=== PATIENT | female | born 1965 | race Caucasian/White ===

== ENCOUNTER 2024-06-13 10:26 | Outpatient (AMB) | payer OTHER, SELFPAY ==
[2024-06-13 10:36] VITALS: BP 106/68; PULSE 83; O2SAT 97; BMI 31.3
--- NOTE | 2024-06-13 10:36 | A.OFFPC_ITS ---
Vital Signs 06/13/24 10:36 Height 5 ft 5 in Weight 188 lb BMI 31.3 BP 106/68 Blood Pressure Location Rt brachial Position Sitting Pulse 83 Pulse Source Pulse Oximeter Pulse Oximetry (%) 97 Oxygen Delivery Method Room Air Intake Visit Reasons: New pt visit ok per Dr. Woodard Intake Note: Pt is here today for New patient visit. Allergies dexamethasone [From Decadron] Allergy (Unknown, Unverified 06/13/24 10:39) LIGHTHEADED From Decadron Allergy (Unknown, Uncoded 06/13/24 10:39) LIGHTHEADED Medication List - Last Reconciled 06/13/24 by Mary Woodard MD acetaminophen ER (Tylenol 8 Hour) 1,000 mg PO Q12H PRN amlodipine 5 mg PO DAILY aspirin 81 mg PO DAILY carvedilol 3.125 mg PO BID glipizide 5 mg PO DAILY lidocaine 5% 1 patch topical DAILY metformin ER 750 mg PO BID rosuvastatin 20 mg PO DAILY Tobacco use date assessed: 06/13/24 Dental Screening Dental Screen Date: 06/13/24 Did you have a dental visit in the last 12 months?: Yes Did you have a dental problem in the last 6 months where you did not have access to dental care?: No Was dental information given to patient?: Patient has dentist HPI New pt visit ok per Dr. 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 Pt was hospitalized at [facility] in April for acute stroke presenting as left-sided hemiparesis. 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 The weakness improved significantly. patient has been in physical therapy. She was diagnosed with diabetes A1c of 11% and hypertension. Patient started taking glipizide and metformin and reports improving blood glucose readings overall, monitoring with Dexcom sensor but has frequent hypoglycemic episodes with a glucose dropping to 60s at night. 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 Housing: House Patient Tobacco Use Status: Former Tobacco user e-Cigarette/Vaping Use: Never Used service: No Current occupational status: employed Cognitive needs: No Hearing needs: No Vision needs: Yes Questionnaire AUDIT C Alcohol Use Questionnaire (AUDIT-C) 1. How often do you have a drink containing alcohol?: Monthly or less 2. How many drinks containing alcohol do you have on a typical day when you are drinking?: 1 or 2 3. How often do you have six or more drinks on one occasion?: Never Total Score: 1 Review of Systems Const All systems reviewed & are unremarkable except as noted in HPI and below ENT Reports no additional complaints Card Reports no additional complaints Resp Reports no additional complaints GI Reports no additional complaints Reports no additional complaints Physical exam (Primary Care) Vital Signs: Last Vital Signs Pulse 83 06/13/24 10:36 BP 106/68 06/13/24 10:36 Pulse Ox 97 06/13/24 10:36 Oxygen Delivery Method Room Air 06/13/24 10:36 BMI result Body Mass Index 31.3 Tobacco/Smoking Status: Tobacco use Status Tobacco use date assessed 06/13/24 06/13/24 10:52 Patient Tobacco Use Status Former Tobacco user 06/13/24 11:03 e-Cigarette/Vaping Use Never Used 06/13/24 11:03 Const General: no acute distress HENMT Head: Yes normal to inspection Face and sinus: Yes normal facial exam Throat: Yes posterior oropharynx normal Resp Effort & Inspection: normal respiratory effort Auscultation: clear to auscultation bilaterally Cardio Rhythm: regular rhythm Heart sounds: S1 normal heart sound present and S2 normal heart sound present GI Inspection: Yes normal to inspection Palpation (GI): Soft to palpation Percussion: Yes normal to percussion Auscultation: normal bowel sounds Neuro Other: Right lower extremity 4 to 5/5 strength otherwise all 3 extremities 5/5 strength Gait exam (Neuro): Normal gait present Coordination: [id number] test normal Results AMB Hemoglobin A1c AMB Hemoglobin A1c 7.9 % Last Edit by JESS Lea on 06/13/24 11:2 3 Coding Level of Care Code New Pt Level 5 (93459) Diagnoses CVA (cerebral vascular accident) I63.9 DJD (degenerative joint disease), lumbar M47.816 Hyperlipidemia E78.5 HTN (hypertension) I10 DM type 2 (diabetes mellitus, type 2) E11.9 Thyroid nodule E04.1 Adrenal adenoma D35.00 History of mammography, screening Z92.89 Annual physical exam Z00.00 Assessment & Plan Assessment & Plan (1) CVA (cerebral vascular accident): Comment: LEFT mid brain CVA with mild right sided weakness, hospitalized at [facility] 04/27/2024 Code(s): I63.9 - Cerebral infarction, unspecified Category: Medical Plan: Continue aspirin and high dose of statin, obtain secondary CA workup including echo Holter and sleep studies (2) DJD (degenerative joint disease), lumbar: Comment: f/u with neurosurgeon Dr. Bob Code(s): M47.816 - Spondylosis without myelopathy or radiculopathy, lumbar region Category: Medical Plan: Patient is established with pain management (3) Hyperlipidemia: Code(s): E78.5 - Hyperlipidemia, unspecified Category: Medical Plan: Continue crestor (4) HTN (hypertension): Code(s): I10 - Essential (primary) hypertension Category: Medical Plan: Amlodipine will be changed to lisinopril 20 mg a day for hypertension and renal protection with the diabetes (5) DM type 2 (diabetes mellitus, type 2): Code(s): E11.9 - Type 2 diabetes mellitus without complications Category: Medical Plan: A1c 7.6 today. ADA diet increase physical activity discussed with the patient. Patient was advised to continue monitoring her blood glucose with Dexcom to detect hypoglycemia. She was advised to stop glipizide continue metformin and Mounjaro 2.5 mg weekly will be started. Patient will follow-up in 1 month with a fasting labs before (6) Thyroid nodule: Comment: Patient will schedule an appointment with acoustical tile patternmaker at [facility] 06/2024 Code(s): E04.1 - Nontoxic single thyroid nodule Category: Medical Plan: She will follow-up with acoustical tile patternmaker at [facility] (7) Adrenal adenoma: Comment: on MRI stable Code(s): D35.00 - Benign neoplasm of unspecified adrenal gland Category: Medical Plan: Obtain old record (8) History of mammography, screening: Code(s): Z92.89 - Personal history of other medical treatment Category: Medical Plan: Obtain old records (9) Annual physical exam: Code(s): Z00.00 - Encounter for general adult medical examination without abnormal findings Category: Medical Plan: Patient will be referred to GI for colonoscopy and will call to schedule a Pap smear with her adult health clinical nurse specialist she is overdue for 5 year Orders: Orders CA echo transthoracic complete Today I63.9 - Cerebral infarction, unspecified Comprehensive [place]. Panel Fast 1 Month E11.9 - Type 2 diabetes mellitus without complications, E78.5 - Hyperlipidemia, unspecified, I10 - Essential (primary) hypertension, I63.9 - Cerebral infarction, unspecified Lipid Panel 1 Month E78.5 - Hyperlipidemia, unspecified, I10 - Essential (primary) hypertension, I63.9 - Cerebral infarction, unspecified RT home sleep study Today I63.9 - Cerebral infarction, unspecified ECG 7 day holter monitor Today I63.9 - Cerebral infarction, unspecified AMB Hemoglobin A1c Today Z13.9 - Encounter for screening, unspecified Complete Blood Count Auto Diff 1 Month E78.5 - Hyperlipidemia, unspecified, I10 - Essential (primary) hypertension, I63.9 - Cerebral infarction, unspecified Microalbumin, Random (w Creat) 1 Month E78.5 - Hyperlipidemia, unspecified, I10 - Essential (primary) hypertension, I63.9 - Cerebral infarction, unspecified Referrals Gastroenterology Referral I63.9 - Cerebral infarction, unspecified, Z00.00 - Encounter for general adult medical examination without abnormal findings Medications: New blood-glucose sensor ([employer] G7 Sensor device) As directed 2 ea 3RF lisinopril 20 mg PO DAILY 90 tabs 0RF tirzepatide (Mounjaro) for 4 weeks 2.5 mg (0.5 mL) subcut QWEEK 2 mL 3RF
== END 2024-06-13 11:39 | disposition home or self-care (01) ==
PROVIDERS: PCP Internal Medicine; Visit Provider Internal Medicine
DX: I69.351 Hemiplegia and hemiparesis following cerebral infarction affecting right dominant side (principal); E11.69 Type 2 diabetes mellitus with other specified complication; M47.816 Spondylosis without myelopathy or radiculopathy, lumbar region; E78.5 Hyperlipidemia, unspecified; I10 Essential (primary) hypertension; E04.1 Nontoxic single thyroid nodule; D35.00 Benign neoplasm of unspecified adrenal gland; Z92.89 Personal history of other medical treatment

== ENCOUNTER → 2024-06-13 10:26 | Outpatient (BNVA) | payer BC, SELFPAY | PROVIDERS: PCP Internal Medicine; Visit Provider Internal Medicine | DX: I69.351 Hemiplegia and hemiparesis following cerebral infarction affecting right dominant side (principal); M47.816 Spondylosis without myelopathy or radiculopathy, lumbar region; E78.5 Hyperlipidemia, unspecified; I10 Essential (primary) hypertension; E11.9 Type 2 diabetes mellitus without complications; E04.1 Nontoxic single thyroid nodule; D35.00 Benign neoplasm of unspecified adrenal gland; Z79.82 Long term (current) use of aspirin; Z79.84 Long term (current) use of oral hypoglycemic drugs; Z79.899 Other long term (current) drug therapy | CPT/HCPCS: 83036 ==

== ENCOUNTER 2024-07-09 09:10 | Outpatient (REF) | payer OTHER, SELFPAY ==
[2024-07-09 11:16] LABS: MANUAL DIFF FLAG NO
[2024-07-09 11:20] LABS: Basophils Percent Auto 0.4 % (0-2); Eosinophils Absolute Auto 0.1 X10*3/uL (0.0-0.4); Eosinophils Percent Auto 1.2 % (0-4); Hematocrit 37.4 % (37.0-47.0); Imm Gran Abs Auto 0.04 X10*3/uL (0.00-0.03); Imm Gran Pct Auto 0.4 % (0.0-0.4); Lymphocytes Absolute Auto 2.2 X10*3/uL (1.2-4.9); Lymphocytes Percent Auto 24.9 % (20-40); Mean Corpuscular HGB Conc 32.1 g/dl (31.0-35.0); Mean Corpuscular Hemoglobin 27.5 pg (27.0-33.0); Mean Corpuscular Volume 85.8 fL (80.0-98.0); Mean Platelet Volume 11.4 fL (9.4-12.3); Monocytes Absolute Auto 0.5 X10*3/uL (0.1-1.2); Monocytes Percent Auto 5.1 % (2-11); Neutrophils Absolute Auto 6.1 x10*3/uL (2.0-8.3); Platelet Count 301 X10*3/uL (160-400); Red Blood Count 4.36 X10*6/uL (4.20-5.50); Red Cell Distribution Width 12.9 % (11.0-16.0)
[2024-07-09 11:35] LABS: Alanine Aminotransferase 14 U/L (0-31); Albumin Level 4.1 g/dL (3.5-5.0); Alkaline Phosphatase 81 U/L (39-117); Anion Gap 13 (12-20); Aspartate Amino Transferase 17 U/L (5-31); Bilirubin Total 0.4 mg/dL (0.0-1.0); Blood Urea Nitrogen 15 mg/dL (9-16); Calcium 9.1 mg/dL (8.4-10.2); Carbon Dioxide 26 mmol/L (22-29); Chloride 106 mmol/L (96-108); Cholesterol 134 mg/dL (<200); Estimated Glomerular Filt Rate > 60; Glucose Fasting 180 mg/dL (60-99); HDL Cholesterol 45 mg/dL (>40); LDL Cholesterol Calculated 68 mg/dL (<100); Potassium 3.9 mmol/L (3.3-5.1); Sodium 141 mmol/L (135-145); Total Protein 6.5 g/dL (6.5-8.0); Triglycerides 108 mg/dL (<150)
[2024-07-09 12:08] LABS: Creatinine Urine 185.02 mg/dL
== END 2024-07-09 09:11 | disposition home or self-care (01) ==
LOC: HO.HMGCLDS 09:10
PROVIDERS: PCP Internal Medicine; Visit Provider Internal Medicine
DX: E78.5 Hyperlipidemia, unspecified (principal); I10 Essential (primary) hypertension; I63.9 Cerebral infarction, unspecified; E11.9 Type 2 diabetes mellitus without complications
CPT/HCPCS: 36415; 80053; 80061; 82043; 82570; 85025

== ENCOUNTER 2024-07-11 09:56 | Outpatient (AMB) | payer OTHER, SELFPAY ==
[2024-07-11 10:06] VITALS: BP 126/78; PULSE 82; O2SAT 100; BMI 31.3
--- NOTE | 2024-07-11 10:06 | A.OFFPC_ITS ---
Vital Signs 07/11/24 10:06 Height 5 ft 5 in Weight 188 lb BMI 31.3 BP 126/78 Blood Pressure Location Lt brachial Position Sitting Pulse 82 Pulse Source Pulse Oximeter Pulse Oximetry (%) 100 Oxygen Delivery Method Room Air Intake Visit Reasons: 1m follow up Intake Note: Pt is here today for 1 month follow up visit. Allergies dexamethasone [From Decadron] Allergy (Unknown, Unverified 07/11/24 10:08) LIGHTHEADED From Decadron Allergy (Unknown, Uncoded 07/11/24 10:08) LIGHTHEADED Medication List - Last Reconciled 07/11/24 by Mary Woodard MD acetaminophen ER (Tylenol 8 Hour) 1,000 mg PO Q12H PRN aspirin 81 mg PO DAILY blood sugar diagnostic (FreeStyle Lite Strips) Test blood sugar once a day blood-glucose meter (FreeStyle Lite Meter kit) As directed blood-glucose sensor ([employer] G7 Sensor device) As directed carvedilol 3.125 mg PO BID lancets (FreeStyle Lancets) Test blood sugar once a day lidocaine 5% 1 patch topical DAILY lisinopril 20 mg PO DAILY metformin ER 750 mg PO BID rosuvastatin 20 mg PO DAILY tirzepatide (Mounjaro) 2.5 mg (0.5 mL) subcut QWEEK Tobacco use date assessed: 07/11/24 Dental Screening Dental Screen Date: 06/13/24 HPI 1m follow up HPI Details Patient presents for the follow-up on type 2 diabetes hypertension. Patient reports improved blood glucose readings and no episodes of hypoglycemia since she stopped glipizide. Patient increased lisinopril to 40 mg a day last week because of elevated blood pressure at home. 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 1. Little interest or pleasure in doing things: not at all 2. Feeling down, depressed, or hopeless: not at all 3. Trouble falling or staying asleep, or sleeping too much: not at all 4. Feeling tired or having little energy: not at all 5. Poor appetite or overeating: not at all 6. Feeling bad about yourself - or that you are a failure or have let yourself or your family down: not at all 7. Trouble concentrating on things, such as reading the newspaper or watching television: not at all 8. Moving or speaking so slowly that other people could have noticed. Or the opposite - being so fidgety or restless that you have been moving around a lot more than usual: not at all 9. Thoughts that you would be better off or of hurting yourself in some way: not at all Total score: 0 Depression Screening Interpretation: Negative Depression Screening Done: Yes [id number] - PHQ-9 Billing: Yes Source: Developed by Drs. Osvaldo Russo, Meghan Hurt, Scooby Lopez and colleagues, with an educational ivelisse from [employer]. Thrive Questionnaire Date Thrive assessed: 07/11/24 I am a: Patient What is your living situation today?: I have a steady place to live Within the past 12 months, did the food you bought not last and you didn't have the money to get more?: Never true Within the past 12 months, did you worry whether your food would run out before you got money to buy more?: Never true Do you have trouble paying for medicines?: No Do you have trouble getting transportation to medical appointments?: No Do you have trouble paying your heating and electricity bill?: No Do you have trouble taking care of your child, family member or friend?: No Do you have trouble with day-to-day activities such as bathing, preparing meals, shopping, managing finances, etc.?: No Are you currently unemployed and looking for a job?: No Are you interested in more education?: No Please select the resources that you would like help with: None Currently or been in a relationship where the following occur: No concerns reported THRIVE Score: 0 AUDIT C Alcohol Use Questionnaire (AUDIT-C) 1. How often do you have a drink containing alcohol?: Monthly or less 2. How many drinks containing alcohol do you have on a typical day when you are drinking?: 1 or 2 3. How often do you have six or more drinks on one occasion?: Never Total Score: 1 ROBERTA-7 AMB Questionnaire ROBERTA-7 Date ROBERTA - 7 assessed: 07/11/24 Feeling nervous, anxious, or on edge: 0 = Not at all Not being able to stop or control worryin = Not at all Worrying too much about different things: 0 = Not at all Trouble relaxin = Not at all Being so restless that it is hard to sit still: 0 = Not at all Becoming easily annoyed or irritable: 0 = Not at all Feeling afraid as if something awful might happen: 0 = Not at all Total ROBERTA-7 score (0-4 normal; 5-9 mild; 10-14 moderate; 15-21 severe): 0 Source: Developed by Drs. Osvaldo Russo, Meghan Hurt, Scooby Lopez and colleagues, with an educational ivelisse from [employer]. ROBERTA-7 Assessment Billing ROBERTA-7 Assessment Tool: ROBERTA-7 Assessment 48701 Review of Systems Const All systems reviewed & are unremarkable except as noted in HPI and below Eyes Reports no additional complaints ENT Reports no additional complaints Card Reports no additional complaints Resp Reports no additional complaints GI Reports no additional complaints Reports no additional complaints Physical exam (Primary Care) Vital Signs: Last Vital Signs Pulse 82 07/11/24 10:06 BP 126/78 07/11/24 10:06 Pulse Ox 100 07/11/24 10:06 Oxygen Delivery Method Room Air 07/11/24 10:06 BMI result Body Mass Index 31.3 Tobacco/Smoking Status: Tobacco use Status Tobacco use date assessed 07/11/24 07/11/24 10:11 Patient Tobacco Use Status Former Tobacco user 07/11/24 10:11 e-Cigarette/Vaping Use Never Used 07/11/24 10:11 PHQ-9: PHQ-9 Score PHQ-9: Total score 0 07/11/24 11:19 Depression Screening Interpretation: Negative Thrive Assessment: Date of Thrive Assessment Date Thrive assessed 07/11/24 07/11/24 10:11 Currently or been in a relationship where the following occur: No concerns reported Const General: no acute distress HENMT Head: Yes normal to inspection Eyes General: appearance normal, both eyes and all related structures Neck Neck: Yes supple Resp Effort & Inspection: normal respiratory effort Auscultation: clear to auscultation bilaterally Cardio Rhythm: regular rhythm Heart sounds: S1 normal heart sound present and S2 normal heart sound present GI Inspection: Yes normal to inspection Palpation (GI): Soft to palpation Percussion: Yes normal to percussion Auscultation: normal bowel sounds Coding Level of Care Code Est Pt Level 4 (14033) Diagnoses HTN (hypertension) I10 Hyperlipidemia E78.5 DM type 2 (diabetes mellitus, type 2) E11.9 Additional Codes ROBERTA-7 Assessment Billing - ROBERTA-7 Assessment Tool: ROEBRTA-7 Assessment 57411 ([id number]) PHQ-9 - 96224 - PHQ-9 Billing: Yes ([id number]) Assessment & Plan Assessment & Plan (1) HTN (hypertension): Code(s): I10 - Essential (primary) hypertension Category: Medical Plan: Increase carvedilol to 6.25 twice a day continue 40 mg of lisinopril (2) Hyperlipidemia: Code(s): E78.5 - Hyperlipidemia, unspecified Category: Medical Plan: Continue statin (3) DM type 2 (diabetes mellitus, type 2): Code(s): E11.9 - Type 2 diabetes mellitus without complications Category: Medical Plan: Increase Mounjaro to 5 mg weekly and continue metformin and ADA diet , follow-up in 2 months with a fasting labs before Orders: Orders Hemoglobin A1c 2 Months E11.9 - Type 2 diabetes mellitus without complications, E78.5 - Hyperlipidemia, unspecified, I10 - Essential (primary) hypertension Comprehensive [place]. Panel Fast 2 Months E11.9 - Type 2 diabetes mellitus without complications, E78.5 - Hyperlipidemia, unspecified, I10 - Essential (primary) hypertension Complete Blood Count Auto Diff 2 Months E11.9 - Type 2 diabetes mellitus without complications, E78.5 - Hyperlipidemia, unspecified, I10 - Essential (primary) hypertension Lipid Panel 2 Months E11.9 - Type 2 diabetes mellitus without complications, E78.5 - Hyperlipidemia, unspecified, I10 - Essential (primary) hypertension Medications: New lisinopril 40 mg PO DAILY 90 tabs 1RF carvedilol must administer with a meal/food 6.25 mg PO BID 180 tabs 0RF tirzepatide (Mounjaro) 5 mg (0.5 mL) subcut QWEEK 2 mL 1RF Discontinued lisinopril Discontinued Reason: Doctor's Order 20 mg PO DAILY 90 tabs 0RF tirzepatide (Mounjaro) for 4 weeks Discontinued Reason: Doctor's Order 2.5 mg (0.5 mL) subcut QWEEK 2 mL 3RF carvedilol must administer with a meal/food Discontinued Reason: Doctor's Order 3.125 mg PO BID 180 tabs 0RF
--- OUTSIDE RECORDS SUMMARY | 2024-07-17 01:25 | XMS_ITS | Continuity of Care Document ---
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 Role Phone Mary Woodard MD Primary Care Physician [phone] Encounter [facility] Date(s): 06/03/24 - 07/03/24 [facility] [address], [address] [place] [id number] Attending Physician: Guillermina Bernstein Admitting Physician: Guillermina Bernstein Referring Physician: Guillermina Bernstein Encounter Type: Triage Allergies, Adverse Reactions, Alerts Substance Criticality Severity Reaction Reaction Severity Status Decadron lightheadedness Acti ve Medications amLODIPine 5 mg oral tablet 5 mg, 1, tablet, By Mouth, Daily, # 30 tablet, Refills 0, Tot. Refills 0, Maintenance, 04/28/24 1:21:00 PM EDT, Route to Pharmacy Electronically, [facility]/pharmacy #[id number], Partial fill upon patient request if the prescription is for a schedule II opioid drug., 167, cm, 04/28/24 11:10:00 EDT, Height, 82, kg, 04/27/24 18:26:00 EDT, Dry Weight Start Date: 04/28/24 Status: Ordered Quantity: 30.0 Unit: tablet Repeat number: 1 aspirin 81 mg oral delayed release tablet = 81 mg, By Mouth, Daily, # 30 tablet, 0 Refills, Maintenance, 04/28/24 1:15:00 PM EDT, EC Tablet, [facility]/pharmacy #[id number], Partial fill upon patient request if the prescription is for a schedule II opioiddrug., 167, cm, 04/28/24 11:10:00 EDT, Height, 82, kg, 04/27/24 18:26:00 EDT, Dry Weight Start Date: 04/28/24 Status: Ordered Quantity: 30.0 Unit: tablet Repeat number: 1 carvedilol 3.125 mg oral tablet 3.125 mg, 1, tablet, By Mouth, 2 times a day, # 60 tablet, Refills 0, Tot. Refills 0, Maintenance, 04/28/24 1:20:00 PM EDT, Route to Pharmacy Electronically, [facility]/pharmacy #[id number], Partial fill upon patient request if the prescription is for a schedule II opioid drug., 167, cm, 04/28/24 11:10:00 EDT, Height, 82, kg, 04/27/24 18:26:00 EDT, Dry Weight Start Date: 04/28/24 Status: Ordered Quantity: 60.0 Unit: tablet Repeat number: 1 clopidogrel 75 mg oral tablet 75 mg, 1, tablet, By Mouth, Daily, # 21 tablet, Refills 0, Tot. Refills 0, Maintenance, 04/28/24 1:15:00 PM EDT, Route to Pharmacy Electronically, [facility]/pharmacy #[id number], Partial fill upon patient requestif the prescription is for a schedule II opioid drug., 167, cm, 04/28/24 11:10:00 EDT, Height, 82, kg, 04/27/24 18:26:00 EDT, Dry Weight Start Date: 04/28/24 Stop Date: 05/19/24 Status: Ordered Quantity: 21.0 Unit: tablet Repeat number: 1 Contour Next EZ Glucometer See Instructions, # 1 each, Maintenance, use as directed for Type 2 Diabetes Mellitus; check sugars3 times before meals and at bedtime, everyday., 04/28/24 1:15:00 PM EDT, Supply, 167, cm, 04/28/24 11:10:00 EDT, Height, 82, kg, 04/27/24 18:26:00 EDT, Dry Weight Start Date: 04/28/24 Status: Ordered Quantity: 1.0 Unit: each Repeat number: 1 Crestor 20 mg oral tablet 1 tablet = 20 mg, By Mouth, Daily, # 30 tablet, 0 Refills, Maintenance, 04/28/24 1:16:00 PM EDT, Tablet, [facility]/pharmacy #[id number], Partial fill upon patient request if the prescription is for a schedule II opioid drug., 167, cm, 04/28/24 11:10:00 EDT, Height, 82, kg, 04/27/24 18:26:00 EDT, Dry Weight Start Date: 04/28/24 Status: Ordered Quantity: 30.0 Unit: tablet Repeat number: 1 Freestyle Lancets See Instructions, # 200 each, Refills 5, Tot. Refills 5, Maintenance, use as directed for Type 2 Diabetes Mellitus; check sugars 3 times before meals and at bedtime, everyday., 04/28/24 1:16:00 PM EDT, Supply, 167, cm, 04/28/24 11:10:00 EDT, Height, 82, kg, 04/27/24 18:26:00 EDT, Dry Weight Start Date: 04/28/24 Stop Date: 10/25/24 Status: Ordered Quantity: 200.0 Unit: each Repeat number: 6 Freestyle Test Strips See Instructions, # 100 each, Maintenance, check sugars 3 times before meals and at bedtime, everyday., 04/28/24 1:16:00 PM EDT, Supply, 167, cm, 04/28/24 11:10:00 EDT, Height, 82, kg, 04/27/24 18:26:00 EDT, Dry Weight Start Date: 04/28/24 Status: Ordered Quantity: 100.0 Unit: each Repeat number: 1 glipiZIDE 5 mg oral tablet, extended release 0 Refills, Maintenance, 06/03/24 8:38:00 AM EDT, Partial fill upon patient request if the prescription is for a schedule II opioid drug. Start Date: 06/03/24 Status: Ordered Repeat number: 1 insulin lispro 100 units/mL injectable solution 2-10 units, Subcutaneous Injection, 3 times a day before meals and bedtime, PRN Blood Glucose, << Sliding Scale Comments >> 170 - 219 2 units Call if less than 70 220 - 269 4 units 270 - 319 6 units 320 - 369 8 units 370 - 419 10 units Call if greater than 400 << Sliding Scale Comments >>, # 100 mL, 0 Refills, Maintenance, 04/30/24 10:57:00 AM EDT, Injection, Partial fill upon patient request if the prescription is for a schedule II opioid drug. Start Date: 04/30/24 Status: Ordered Quantity: 100.0 Unit: mL Repeat number: 1 metFORMIN 500 mg oral tablet 0 Refills, Maintenance, 06/03/24 8:38:00 AM EDT, Partial fill upon patient request if the prescription is for a schedule II opioid drug. Start Date: 06/03/24 Status: Ordered Repeat number: 1 Multivitamin 1 tab, By Mouth, Daily, to hold, 0 Refills, Maintenance, 01/11/16 9:48:15 AM EDT Start Date: 01/11/16 Status: Ordered Repeat number: 1 Pen [place], 30 G x 8 mm BD Ultra Fine II See Instructions, # 100 each, Refills 5, Tot. Refills 5, Maintenance, use as directed for Type 2 Diabetes Mellitus; check sugars 3 times before meals and at bedtime, everyday., 04/28/24 1:16:00 PM EDT, Supply, 167, cm, 04/28/24 11:10:00 EDT, Height, 82, kg, 04/27/24 18:26:00 EDT, Dry Weight Start Date: 04/28/24 Stop Date: 10/25/24 Status: Ordered Quantity: 100.0 Unit: each Repeat number: 6 Pt.'s Own Meds inhaler, Inhalation, Daily, PRN, Maintenance, seldom uses-allergy related, 01/11/16 9:48:54 AM EDT Start Date: 01/11/16 Status: Ordered Repeat number: 1 Tresiba FlexTouch 200 units/mL subcutaneous solution = 10 units, Subcutaneous Injection, Daily, rotate injection sites check sugars 3 times before mealsand at bedtime, everyday. Inject tresiba once daily in the morning., # 9 mL, 0 Refills, Maintenance, 04/28/24 1:16:00 PM EDT, Solution, [facility]/pharmacy #[id number], Partial fill upon patient request if the prescription is for a schedule II opioid drug., 167, cm, 04/28/24 11:10:00 EDT, Height, 82, kg, 04/27/24 18:26:00 EDT, Dry Weight Start Date: 04/28/24 Status: Ordered Quantity: 9.0 Unit: mL Repeat number: 1 Problem List Condition Confirmation Course Effective Dates Status Health St atus Informant Obese class I Confirmed Active Social History Social History Type Response Smoking Status Former smoker, quit more than 30 days ago entered on: 06/03/24 Sex Sex Representation Female (finding) Patient Care team information Care Team Personnel Name: Mary Woodard MD Position: [facility] Physician - Primary Care Member Role: PCP Address: [address] [place], [place] [address] Telecom: Name: Lashawn Rossi RN Position: [facility] RN Member Role: Primary Care Nurse Name: Viktoria Reynoso RN Position: S RN Member Role: Primary Care Nurse Name: Keila Winston RN Position: [facility] RN Member Role: Primary Care Nurse Name: Darcie Bejarano RN Position: [facility] RN Member Role: Primary Care Nurse Care Team Related Persons Name: FRED FOOTE Name: DEBBIE WADSWORTH Insurance Providers Guarantor name: ELICIA FOOTE Health Plan Information #: 1 Payer: HNE FF NON BHP HMO Member Number: NA Policy Number: NA Group Number: NA Health Plan Information #: 2 Payer: HMO BLUE IN NETWORK Member Number: NA Policy Number: NA Group Number: NA Health Plan Information #: 3 Payer: HNE SELECT PPO Member Number: NA Policy Number: NA Group Number: NA
--- OUTSIDE RECORDS SUMMARY | 2024-07-17 01:25 | XMS_ITS | Continuity of Care Document ---
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 Refills 0, Maintenance, 04/28/24 1:21:00 PM EDT, Route to Pharmacy Electronically, [facility]/pharmacy #[id number], Partial fill upon patient request if [...] Maintenance, 04/28/24 1:15:00 PM EDT, EC Tablet, [id number], Partial fill upon patient request [...] 1:20:00 PM EDT, Route to Pharmacy Electronically, [facility]/pharmacy #[id number], Partial fill upon patient request if [...] 1:15:00 PM EDT, Route to Pharmacy Electronically, [facility]/pharmacy #[id number], Partial fill upon patient requestif the [...] Refills, Maintenance, 04/28/24 1:16:00 PM EDT, Tablet, [facility]/pharmacy #[id number], Partial fill upon patient request if [...] 01/11/16 Status: Ordered Repeat number: 1 Pen [place], 30 G x 8 mm BD Ultra [...] Team Personnel Name: Mary Woodard MD Position: [facility] Physician - Primary Care Member Role: PCP Address: [address] [place], [place] [email or web address] Telecom: Name: Lashawn Rossi RN Position: [facility] RN Member Role: Primary Care Nurse Name: Viktoria Reynoso RN Position: [facility] RN Member Role: Primary Care Nurse Name: Keila Winston RN Position: [facility] RN Member Role: Primary Care Nurse Name: Darcie Bejarano RN Position: [facility] RN Member Role: Primary Care Nurse Care Team Related Persons Name: FRED FOOTE Name: DEBBIE WADSWORTH Insurance Providers Guarantor name: ELICIA FOOTE Health Plan Information #: 3 Payer: HNE SELECT PPO Member Number: [id number] Policy Number: NA Group Number: NA Health Plan Information #: 1 Payer: HNE FF NON BHP HMO Member Number: [id number] Policy Number: NA Group Number: [id number] Health Plan Information #: 2 Payer: HMO BLUE IN NETWORK Member Number: [id number] Policy Number: NA Group Number: [id number]
== END 2024-07-11 10:39 | disposition home or self-care (01) ==
PROVIDERS: PCP Internal Medicine; Visit Provider Internal Medicine
DX: I10 Essential (primary) hypertension (principal); E78.5 Hyperlipidemia, unspecified; E11.9 Type 2 diabetes mellitus without complications

== ENCOUNTER → 2024-07-11 09:56 | Outpatient (BNVA) | payer OTHER, SELFPAY | PROVIDERS: PCP Internal Medicine; Visit Provider Internal Medicine | DX: I10 Essential (primary) hypertension (principal); E78.5 Hyperlipidemia, unspecified; E11.9 Type 2 diabetes mellitus without complications; Z79.899 Other long term (current) drug therapy | CPT/HCPCS: 96127 ==

== ENCOUNTER → 2024-07-19 10:39 | Outpatient (REF) | payer OTHER, SELFPAY ==
--- NOTE | 2024-07-19 10:44 | CA_ITS ---
Transthoracic Echocardiogram Patient (Last, First, Middle): Alisa Chávez E Gender: Female Date of : 1965 Age: 58 Procedure Date: 07/19/2024 Procedure Type: Transthoracic Echocardiogram Location: OP Height: 165. cm Weight: 84.82 kg BSA: 1.92 m2 Heart Rate: 81 bpm BP: 142 / 75 mmHg [employer] Facility Supervisor: MANDA Referring MD: Mary Woodard MD Warehouse Order Filler: Johnson Noyola MD Symptoms: I63.9 - Cerebral infarction, unspecified Study Quality: Adequate ECG Rhythm: Arrhythmia Conclusions: - 1. Low normal LVEF of 50-55% with mild LVH with impaired relaxation filling pattern 2. Mild aortic regurgitation 3. Normal RV systolic pressure 4. Upper limits of normal ascending aortic size 5. No pericardial effusion 6. PFO can not be conclusively ruled out on this study, consider WHITNEY Findings Left Ventricle Normal left ventricular cavity size. There is mildly increased left ventricular wall thickness. The left ventricular systolic function is low normal. The visually estimated ejection fraction is between 50-55%. Spectral Doppler is indicative of an impaired relaxation filling pattern. E/E prime ratio is between 8 and 15 consistent with indeterminate filling pressures. There is moderate septal asymmetric hypertrophy. Right Ventricle Normal right ventricular cavity size and systolic function. Atria The left atrium is likely dilated. Interatrial shunt cannot be excluded. The right atrium was not well visualized. Aortic Valve Normal aortic valve structure and function. There is no aortic valve stenosis. There is mild aortic valve regurgitation. Mitral Valve Normal mitral valve structure and function. There is trace mitral valve regurgitation. There is no mitral valve stenosis. Pulmonic Valve The pulmonic valve was not well visualized. Tricuspid Valve Likely normal tricuspid valve structure and function. There is trace tricuspid valve regurgitation. The right ventricular systolic pressure is normal. The right ventricular systolic pressure is 15 mmHg. Normal right atrial pressure. There is no evidence of pulmonary hypertension. Great Vessels The pulmonary artery was not well visualized. There is no dilatation of the ascending aorta measuring 3.60 cm. Venous The inferior vena cava is normal in size and collapses greater than 50% with inspiration. Pericardium/Pleural There is no evidence of pericardial effusion. Prior Study Comparison No prior study available for comparison. Recommendations, Care & Conclusions Consider a WHITNEY if clinically appropriate. Measurements 2D Linear Measurements IVSd: 1.50 0.6-0.9/0.6-1.0 cm LVIDd: 4.30 3.9-5.3/4.2-5.9 cm LVIDd Index: 2.24 2.4-3.2/2.2-3.1 cm/m2 LVIDs: 2.48 2.0-3.6 cm LVPWd: 1.33 0.7-1.1 cm LA Diam: 4.30 2.7-3.8/3.0-4.0 cm LAIDs Index: 2.24 1.5-2.3 cm/m2 LV Mass: 294.28 67-162/88-224 g LV Mass Index: 153.27 43-95/49-115 g/m2 LVOT Diam: 2.20 3.0+(-)1.3 cm 2D Systolic Function EF 4C: 45.80 >55% EF 2C: 54.00 >55% EF BiP: 50.60 >55% Mitral Valve MV Pk E: 0.63 MV PK A: 0.76 MV Decel Time: 217.00 E/A: 0.80 E'Lateral: 4.68 E'Medial: 4.13 E/E' Med: 15.30 E/E' Lat: 13.50 PHT: 64.00 MVA PHT: 3.44 Decel [place]: 2.90 Aortic Valve AoV Pk [place]: 1.40 AoV Mn [place]: 1.12 AoV VTI: 0.32 AoV Pk Grad: 8.00 Aov Mn Grad: 5.00 MONICA Cont.VTI: 2.52 LVOT LVOT Pk [place]: 1.08 LVOT Mn [place]: 0.77 LVOT VTI: 0.21 LVOT Pk Grad: 5.00 LVOT Mn Grad: 3.00 LVOT Diam: 2.20 LVOT Area: 3.80 Diastolic Function MV Pk E: 0.63 MV Pk A: 0.76 E/A: 0.80 E'Medial: 4.13 E/E' Med: 15.30 E' Laterial: 4.68 E/E' Lat: 13.50 Right Ventricle TAPSE (mm): 21.30 TVS' [place]: 13.30 Tricuspid Valve TR Pk [place]: 1.72 TR Pk Grad: 12.00 RA Press: 3.00 RVSP: 15.00 Great Vessels Aorta Sinus of Valsalva: 3.40 2.0-3.5 cm Ao Asc: 3.60 2.1-3.4 cm Pulmonary Valve PV Pk [place]: 0.87 Peak PV Grad: 3.00 Updated in Other Vendor System with Status of Final Johnson Noyola MD electronically signed on 07/20/2024 1:17:16 PM with status of Final
--- NOTE | 2024-07-19 10:44 | HM_ITS ---
Conclusion: 1. Patient was monitored for total period of 6 days and 22 hours 2. Baseline was normal sinus rhythm with average heart of 88 beats per minute 3. No significant pauses noted 4. Occasional PACs noted with total burden of 0.8% without any sustained episodes of atrial fibrillation. 5. Rare PVCs noted with 1 3 beat run of nonsustained VT at 158 beats per minute 6. No patient reported events MTDD
== END ==
LOC: HO.CARD 10:39
PROVIDERS: PCP Internal Medicine; Visit Provider Internal Medicine
DX: I63.9 Cerebral infarction, unspecified (principal); I10 Essential (primary) hypertension; I35.1 Nonrheumatic aortic (valve) insufficiency; I49.1 Atrial premature depolarization
CPT/HCPCS: 93242; 93306

== ENCOUNTER → 2024-07-19 10:44 | Outpatient (BNV) | payer OTHER, SELFPAY | PROVIDERS: PCP Internal Medicine; Visit Provider Internal Medicine Cardiovascular Disease | DX: I63.9 Cerebral infarction, unspecified (principal); I42.2 Other hypertrophic cardiomyopathy; I35.1 Nonrheumatic aortic (valve) insufficiency | CPT/HCPCS: 93306 ==

== ENCOUNTER 2024-08-20 14:16 | Outpatient (AMB) | payer OTHER, SELFPAY ==
--- NOTE | 2024-08-20 14:17 | A.OFFVIS_ITS ---
Vital Signs 08/20/24 14:18 Height 5 ft 5 in Weight 180 lb BMI 30.0 BP 120/76 Blood Pressure Location Lt brachial Position Sitting Pulse 99 Intake Visit Reasons: new patient dx CVA Intake Note: New patient had CVA 04/27/24 with ekg today c/o still being off and double vision Supervisor [employer] Required: No Allergies dexamethasone [From Decadron] Allergy (Unknown, Unverified 07/11/24 10:08) LIGHTHEADED From Decadron Allergy (Unknown, Uncoded 07/11/24 10:08) LIGHTHEADED Medication List - Last Reconciled 08/20/24 by Johnson Noyola MD acetaminophen ER (Tylenol 8 Hour) 1,000 mg PO Q12H PRN aspirin 81 mg PO DAILY blood sugar diagnostic (FreeStyle Lite Strips) Test blood sugar once a day blood-glucose meter (FreeStyle Lite Meter kit) As directed blood-glucose sensor ([employer] G7 Sensor device) As directed carvedilol 6.25 mg PO BID lancets (FreeStyle Lancets) Test blood sugar once a day lisinopril 40 mg PO DAILY metformin ER 750 mg PO BID rosuvastatin 20 mg PO DAILY tirzepatide (Mounjaro) 5 mg (0.5 mL) subcut QWEEK HPI Comments Details: Thank you for referring Alisa in cardiology consultation today for cardiology workup for recent CVA. 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 At the same time she was diagnose significantly uncontrolled diabetes and hyperlipidemia. She has been started on medical therapy and says that her diabetes not much better control with hemoglobin A1c from 11-7.9. Her LDL is also much improved with high-intensity statin therapy. She has no new neurologic symptoms but continues to be recover from her CVA. She is referred here for further evaluation. She was not aware of having diabetes in the past. She also has history of hypertension which is currently well optimized. She was referred here for further evaluation. She underwent a recent Holter monitor which showed occasional PACs without any obvious atrial fibrillation. She also had an echocardiogram which showed normal LV ejection fraction although it was inconclusive to rule out PFO. She denies any cardiac symptoms. Denies any prolonged palpitations. 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 Housing: House Patient Tobacco Use Status: Former Tobacco user e-Cigarette/Vaping Use: Never Used service: No Current occupational status: employed Cognitive needs: No Hearing needs: No Vision needs: Yes Review of Systems Const Denies chills, Denies daytime sleepiness, Denies fatigue, Denies fever(s), Denies frequent falls, Denies poor appetite, Denies snoring, Denies stops breathing during sleep, Denies weakness, Denies weight gain and Denies weight loss Eyes Denies loss of vision ENT Denies dizziness and Denies hearing loss Card Denies chest pain, Denies claudication, Denies leg edema, Denies lightheadedness, Denies palpitations, Denies dyspnea, Denies dyspnea on exertion and Denies orthopnea Resp Denies cough, Denies excessive phlegm production, Denies dyspnea, Denies dyspnea on exertion, Denies snoring and Denies wheezing GI Denies abdominal pain, Denies hematochezia, Denies change in bowel habits, Denies nausea and Denies vomiting Denies urinary frequency and Denies dysuria Musc Denies arthralgias, Denies muscle weakness, Denies numbness and Denies other (frequent falls) Skin/Breast Denies nail changes and Denies rash Neuro Denies Abnormal speech present, Denies dizziness, Denies frequent falls, Denies loss of vision, Denies memory loss, Denies numbness and Denies weakness Psych Denies depression and Denies memory loss Endo Denies fatigue and Denies palpitations Victor M/Lymph Reports easy bruising and Reports other (anemia) Aller/Immun Denies wheezing Physical Exam Vital Signs: Last Vital Signs Pulse 99 08/20/24 14:18 BP 120/76 08/20/24 14:18 BMI result Body Mass Index 30.0 Const General: cooperative, comfortable, no acute distress, alert, awake and well groomed Nutritional Appearance: overweight Orientation/consciousness: patient oriented x3 Limitations: no limitations HEENT Head: Yes normocephalic and Yes atraumatic Neck Neck: Yes trachea midline, Yes supple and Yes no JVD Resp Effort & Inspection: normal respiratory effort Auscultation: clear to auscultation bilaterally Cardio Jugular venous distension: no JVD Palpation: normal PMI Rate: regular rate Rhythm: regular rhythm Heart sounds: S1 normal heart sound present, S2 normal heart sound present, no click, no gallops, no murmurs and no rubs GI Auscultation: normal bowel sounds Skin General skin exam: no rashes or lesions noted Neuro General: patient oriented x3 and no focal motor deficits Speech: No Abnormal speech present Extrem General: Yes no clubbing, cyanosis or edema Office Procedures EKG Details: EKG shows normal sinus rhythm with septal QS pattern otherwise no significant abnormality [id number], Complete Assessment & Plan Assessment & Plan (1) CVA (cerebral vascular accident): Comment: LEFT mid 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 Etiology is not exactly clear. Her MRI did not show any significant extracranial intracranial stenosis although suspicion given her multiple risk factors as she might as small-vessel disease. She was treated briefly with dual antiplatelet therapy and currently on aspirin therapy. She was also being aggressively treated for hypertension, diabetes as well as hyperlipidemia. She says her LDL is improved significantly. Although given her age I think I would need to rule out any obvious cardiac etiology as this may supervisor records change including to rule out PFO or any other significant atherosclerotic changes in the arch of the aorta. A transesophageal echocardiogram has been suggested. We discussed the procedure in details including risks, benefits, alternatives. She understands agrees and wants to pursue this in early October given her personal situation. This is acceptable at that point time. Possibility of management of PFO was discussed. If this is negative I would suggest her to undergo placement of internal loop monitor given her presence of PACs and risk for atrial fibrillation. She was concerned about it but understood and agreed. Will pursue this after the WHITNEY if necessary. This was discussed with her. Will follow up in the clinic as testing findings evolve. Coding Level of Care Code New Pt Level 4 (70124) Complex EM visit Add On G2211 Diagnoses CVA (cerebral vascular accident) I63.9 CPT Codes EKG - CPT: 73428-[id number], Complete ([id number])
[2024-08-20 14:18] VITALS: BP 120/76; PULSE 99
--- OUTSIDE RECORDS SUMMARY | 2024-08-20 16:47 | XMS_ITS | Continuity of Care Document ---
Author Organization [facility] Address [address] [place] [address] [address], [address] [place] [address]- Care Team Providers Care Skin Lifter Bacon Name Role Phone Mary Woodard MD Primary Care Physician [phone] [id number] Date(s): 07/18/24 - 07/25/[address] [place], [place] [address] Attending Physician: Bebeto Bob MD Referring Physician: Not on Staff, Referring MD Encounter Type: Office Visit Allergies, Adverse Reactions, Alerts Substance Criticality Severity Reaction Reaction Severity Status Decadron lightheadedness Acti ve Medications amLODIPine 5 mg oral tablet 5 mg, 1, tablet, By Mouth, Daily, # 30 tablet, Refills 0, Tot. Refills 0, Maintenance, 04/28/24 1:21:00 PM EDT, Route to Pharmacy Electronically, [facility]/pharmacy #[id number], Partial fill upon patient request [...] 1:20:00 PM EDT, Route to Pharmacy Electronically, [facility]/pharmacy #[id number], Partial fill upon patient request [...] 1:15:00 PM EDT, Route to Pharmacy Electronically, [facility]/pharmacy #[id number], Partial fill upon patient requestif [...] Refills, Maintenance, 04/28/24 1:16:00 PM EDT, Tablet, [facility]/pharmacy #[id number], Partial fill upon patient request [...] Quantity: 100.0 Unit: mL Repeat number: 1 Lisinopril By Mouth, Daily, 0 Refills, Maintenance, 07/18/24 10:25:00 AM EST, Partial fill upon patient request if the prescription is for a schedule II opioid drug. Start Date: 07/18/24 Status: Ordered Repeat number: 1 metFORMIN 500 mg oral tablet 0 Refills, Maintenance, 06/03/24 8:38:00 AM EDT, Partial fill upon patient request if the prescription is for a schedule II opioid drug. Start Date: 06/03/24 Status: Ordered Repeat number: 1 Mounjaro 2.5 mg/0.5 mL subcutaneous solution 0 Refills, Maintenance, 07/18/24 10:26:00 AM EST, Partial fill upon patient request if the prescription is for a schedule II opioid drug. Start Date: 07/18/24 Status: Ordered Repeat number: 1 Multivitamin 1 tab, By Mouth, Daily, to hold, 0 Refills, Maintenance, 01/11/16 9:48:15 AM EDT Start Date: 01/11/16 Status: Ordered Repeat number: 1 Pen [place], 30 G x 8 mm BD Ultra [...] atus Informant Obese class I Confirmed Active Vital Signs Most recent to oldest [Reference Range]: 1 Height 165 cm (07/18/24 10:22 AM) Weight 85.8 kg (07/18/24 10:22 AM) Body Mass Index [18.5-24.99 kg/m2] 31.52 kg/m2 *>HHI* (07/18/24 10:22 AM) Social History Social History Type Response Smoking Status Former smoker, quit more than 30 days ago entered on: 06/03/24 Sex Sex Representation Female (finding) Patient Care team information Care Team Personnel Name: Mary Woodard MD Position: [facility] Physician - Primary Care Member Role: PCP Address: [address] [place] [address] Telecom: Name: Lashawn Rossi RN Position: S RN Member Role: Primary Care Nurse Name: Viktoria Reynoso RN Position: S RN Member Role: Primary Care Nurse Name: Keila Winston RN Position: S RN Member Role: Primary Care Nurse Name: Darcie Bejarano RN Position: [facility] RN Member Role: Primary Care Nurse Care Team Related Persons Name: FRED FOOTE Name: DEBBIE WADSWORTH Insurance Providers Guarantor name: ELICIA QAMAR Health Plan Information #: 3 Payer: HMO BLUE IN NETWORK Member Number: [id number] Policy Number: NA Group Number: [id number] Health Plan Information #: 1 Payer: HNE SELECT PPO Member Number: [id number] Policy Number: NA Group Number: NA Health Plan Information #: 4 Payer: HNE SELECT PPO Member Number: [id number] Policy Number: NA Group Number: NA Health Plan Information #: 2 Payer: HNE FF NON BHP HMO Member Number: [id number] Policy Number: NA Group Number: [id number]
--- OUTSIDE RECORDS SUMMARY | 2024-08-20 16:47 | XMS_ITS | Continuity of Care Document ---
Author Organization [facility] Address [address] [place] [address] [address], [address] [place] [address]- Care Team Providers Care Quality Controller Name Role Phone Mary Woodard MD Primary Care Physician Encounter [facility] Date(s): 07/18/24 - 08/17/24 [facility] [address] [place] [address] Drive [address] [place], [place] [address] Attending Physician: Guillermina Bernstein Admitting Physician: AdmGuillermina mckeon Referring Physician: tr ArJorge A Encounter Type: Triage Allergies, Adverse Reactions, Alerts Substance Criticality Severity Reaction Reaction Severity Status Decadron lightheadedness Acti ve Medications amLODIPine 5 mg oral tablet 5 mg, 1, tablet, By Mouth, Daily, # 30 tablet, Refills 0, Tot. Refills 0, Maintenance, 04/28/24 1:21:00 PM EDT, Route to Pharmacy Electronically, [facility]/pharmacy #[id number], Partial fill upon patient request if [...] 1:20:00 PM EDT, Route to Pharmacy Electronically, [facility]/pharmacy #[id number], Partial fill upon patient request if [...] 1:15:00 PM EDT, Route to Pharmacy Electronically, [facility]/pharmacy #[id number], Partial fill upon patient requestif the [...] Refills, Maintenance, 04/28/24 1:16:00 PM EDT, Tablet, [facility]/pharmacy #[id number], Partial fill upon patient request if [...] 01/11/16 Status: Ordered Repeat number: 1 Pen [place], 30 G x 8 mm BD Ultra [...] Care team information Care Team Personnel Name: aMry Woodard MD Position: [facility] Physician - Primary Care Member Role: PCP Address: [address] [place] [address] Telecom: Name: Lashawn Rossi RN Position: S RN Member Role: Primary Care Nurse Name: Viktoria Reynoso RN Position: S RN Member Role: Primary Care Nurse Name: Keila Winston RN Position: S RN Member Role: Primary Care Nurse Name: Darcie Bejarano RN Position: S RN Member Role: Primary Care Nurse Care [...]
--- OUTSIDE RECORDS SUMMARY | 2024-08-20 16:47 | XMS_ITS | Continuity of Care Document ---
Author Organization [facility] Address [address] [place] [address]- Care Team Providers Care Chip Washer Name Role Phone Mary Woodard MD Primary Care Physician Encounter [facility] Date(s): 07/11/24 - 08/10/[address] [address] Attending Physician: Guillermina Bernstein Admitting Physician: Guillermina Bernstein Referring Physician: trGuillermina Encounter Type: Triage Allergies, Adverse Reactions, Alerts Substance Criticality Severity Reaction Reaction Severity Status Decadron lightheadedness Acti ve Medications amLODIPine 5 mg oral tablet 5 mg, 1, tablet, By Mouth, Daily, # 30 tablet, Refills 0, Tot. Refills 0, Maintenance, 04/28/24 1:21:00 PM EDT, Route to Pharmacy Electronically, [facility]/pharmacy #[id number], Partial fill upon patient request [...] Maintenance, 04/28/24 1:15:00 PM EDT, EC Tablet, [facility]/pharmacy #[id number], Partial fill upon patient request [...] 1:20:00 PM EDT, Route to Pharmacy Electronically, [facility]/pharmacy #[id number], Partial fill upon patient request [...] 1:15:00 PM EDT, Route to Pharmacy Electronically, [facility]/pharmacy #[id number], Partial fill upon patient requestif [...] Refills, Maintenance, 04/28/24 1:16:00 PM EDT, Tablet, [facility]/pharmacy #[id number], Partial fill upon patient request [...] 01/11/16 Status: Ordered Repeat number: 1 Pen [place], 30 G x 8 mm BD Ultra [...] Team Personnel Name: Mary Woodard MD Position: [facility] Physician - Primary Care Member Role: PCP Address: [address] [place] [id number] Telecom: Name: Lashawn Rossi RN Position: [facility] RN Member Role: Primary Care Nurse Name: Viktoria Reynoso RN Position: S RN Member Role: Primary Care Nurse Name: Keila Winston RN Position: [facility] RN Member Role: Primary Care Nurse Name: Darcie Bejarano RN Position: [facility] RN Member Role: Primary Care Nurse [...]
--- OUTSIDE RECORDS SUMMARY | 2024-08-20 16:47 | XMS_ITS | Continuity of Care Document ---
Author Organization [facility] Address [address] [place] [address]- Care Team Providers Care Building Wrecker Name Role Phone Mary Woodard MD Primary Care Physician [phone] [id number] Date[facility]s): 05/15/24 - 08/01/[address] [address]- Encounter Diagnosis Unspecified abnormalities of gait and mobility(Final) - Personal history of transient ischemic attack (TIA), and cerebral infarction without residual deficits(Final) - Discharge Disposition: A-D/C Home Attending Physician: Luca Newsome MD Admitting Physician: Luca Newsome MD Referring Physician: Luca Newsome MD Encounter Type: Disch Recurring OP Allergies, Adverse Reactions, Alerts Substance Criticality Severity Reaction Reaction Severity Status Decadron lightheadedness Acti ve Medications amLODIPine 5 mg oral tablet 5 mg, 1, tablet, By Mouth, Daily, # 30 tablet, Refills 0, Tot. Refills 0, Maintenance, 04/28/24 1:21:00 PM EDT, Route to Pharmacy Electronically, [facility]/pharmacy #[id number], Partial fill upon patient request if the [...] 04/28/24 1:15:00 PM EDT, EC Tablet, [facility]/pharmacy #[id number], Partial fill upon patient [...] PM EDT, Route to Pharmacy Electronically, [facility]/pharmacy #[id number], Partial fill upon patient [...] PM EDT, Route to Pharmacy Electronically, [facility]/pharmacy #[id number], Partial fill upon patient [...] Maintenance, 04/28/24 1:16:00 PM EDT, Tablet, [facility]/pharmacy #[id number], Partial fill upon patient [...] 01/11/16 Status: Ordered Repeat number: 1 Pen [place], 30 G x 8 mm BD Ultra [...] Team Personnel Name: Mary Woodard MD Position: [facility] Physician - Primary Care Member Role: PCP Address: [address] [place] [address] Telecom: Name: Lashawn Rossi RN Position: [facility] RN Member Role: Primary Care Nurse Name: Viktoria Reynoso RN Position: S RN Member Role: Primary Care Nurse Name: Keila Winston RN Position: [facility] RN Member Role: Primary Care Nurse Name: Darcie Bejarano RN Position: [facility] RN Member Role: Primary Care Nurse Care Team Related Persons Name: FRED FOOTE Name: DEBBIE WADSWORTH Insurance Providers Guarantor name: ELICIA QAMAR Health Plan Information #: 2 Payer: HMO BLUE IN NETWORK Member Number: [id number] Policy Number: NA Group Number: [id number] Health Plan Information #: 1 Payer: HNE FF NON BHP HMO Member Number: [id number] Policy Number: NA Group Number: [id number] Health Plan Information #: 3 Payer: HNE SELECT PPO Member Number: [id number] Policy Number: NA Group Number: NA
== END 2024-08-20 14:54 | disposition home or self-care (01) ==
PROVIDERS: PCP Internal Medicine; Visit Provider Internal Medicine Cardiovascular Disease
DX: I63.9 Cerebral infarction, unspecified (principal); R94.31 Abnormal electrocardiogram [ECG] [EKG]
CPT/HCPCS: 93010; 99214

== ENCOUNTER → 2024-08-20 14:16 | Outpatient (BNVA) | payer OTHER, SELFPAY | PROVIDERS: PCP Internal Medicine; Visit Provider Internal Medicine Cardiovascular Disease | DX: I69.351 Hemiplegia and hemiparesis following cerebral infarction affecting right dominant side (principal) | CPT/HCPCS: 93005 ==

== ENCOUNTER 2024-10-09 07:43 | Outpatient (REF) | payer OTHER, SELFPAY ==
--- OUTSIDE RECORDS SUMMARY | 2024-10-09 07:45 | XMS_ITS | Continuity of Care Document ---
Author Organization [facility] Address [address] [facility], [address] d Floor, [address] [place] [address]- Care Team Providers Care Buffing Turner And Counter Name Role Phone Yamilet BARBOUR, Mary Primary Care Physician [phone] Encounter [facility] Date(s): 08/29/24 - 09/28/24 [facility] 3rd Floor, [address] [place] [address] Encounter Type: Triage Allergies, Adverse Reactions, Alerts Substance Criticality Severity Reaction Reaction Severity Status Decadron lightheadedness Acti ve Medications amLODIPine 5 mg oral tablet 5 mg, 1, tablet, By Mouth, Daily, # 30 tablet, Refills 0, Tot. Refills 0, Maintenance, 04/28/24 1:21:00 PM EDT, Route to Pharmacy Electronically, [facility]/pharmacy #[id number], Partial fill upon patient [...] Maintenance, 04/28/24 1:15:00 PM EDT, EC Tablet, [facility]/pharmacy #[id number], Partial fill upon patient [...] 1:20:00 PM EDT, Route to Pharmacy Electronically, [facility]/pharmacy #[id number], Partial fill upon patient [...] 1:15:00 PM EDT, Route to Pharmacy Electronically, [facility]/pharmacy #[id number], Partial fill upon patient [...] Refills, Maintenance, 04/28/24 1:16:00 PM EDT, Tablet, [facility]/pharmacy #[id number], Partial fill upon patient [...] 01/11/16 Status: Ordered Repeat number: 1 Pen [place], 30 G x 8 mm BD Ultra [...] Team Personnel Name: Mary Woodard MD Position: [facility] Physician - Primary Care Member Role: PCP Address: [address] [place] [id number] Telecom: Name: Lashawn Rossi RN Position: S RN Member Role: Primary Care Nurse Name: Viktoria Reynoso RN Position: S RN Member Role: Primary Care Nurse Name: Keila Winston RN Position: [facility] RN Member Role: Primary Care Nurse Name: Darcie Bejarano RN Position: S RN Member Role: Primary Care Nurse Care Team Related Persons Name: FRED FOOTE Name: DEBBIE WADSWORTH Insurance Providers Guarantor name: ELICIA QAMAR Health Plan Information #: 1 Payer: HNE FF NON P HMO Member Number: NA Policy Number: NA Group Number: NA
--- OUTSIDE RECORDS SUMMARY | 2024-10-09 07:45 | XMS_ITS | Clinical Summary ---
Author Organization [facility] [place] Address [address] [place] [address] Phone Care Team Providers Care Launderer Hand Name Role Phone Jason Awan MD Primary Care Provider [phone] Surgical History Surgery Date Site/Laterality Comments KNEE SURGERY PROCEDURE:KNEE SURGERY;COMMENT:right WRIST SURGERY PROCEDURE:WRIST SURGERY BUNIONECTOMY PROCEDURE:BUNIONECTOMY Medical History Medical History Date Comments Asthma DX:Asthma Family History Medical History Relation Name Comments Hypertension Father Hyperlipidemia Mother Hypertension Mother Hyperlipidemia Sister Hypertension Sister Relation Name Status Comments Father Mother Sister Social History Tobacco Use Types Packs/Day Years Used Date Smoking Tobacco: Former Cigarettes Q uit: 08/07/1998 Smokeless Tobacco: Never Alcohol Use Standard Drinks/Week Comments Yes 2 (1 standard drink = 0.6 oz pur e alcohol) Comments Unknown Sex and Gender Information Value Date Recorded Sex Assigned at Not on file Legal Sex Female 12:12 PM EST Gender Identity Not on file Sexual Orientation Not on file Obstetrics History Plan of Treatment Health Maintenance Due Date Last Done Comments Breast Cancer Screening 1965 DTaP,Tdap,and Td Vaccines (1 - Tdap) 10/21/1982 Cervical Cancer Screening: P ap Smear 10/21/1984 Pneumococcal Vaccine: 50+ Ye ars (1 of 1 - PCV) 10/21/2013 Zoster Vaccines (1 of 2) 10/21/2013 COVID-19 Vaccine (2023-2 5 season) 2024 Influenza Vaccine (#1) 2024 RSV Immunization Patients 60 + Years Old (1 - 1-dose 75+ series) 10/21/2038 HIB Vaccines Aged Out No longer eligi ble based on patient's age to complete this topic HPV Vaccines Aged Out No longer eligi ble based on patient's age to complete this topic Hepatitis A Vaccines Aged Out No long er eligible based on patient's age to complete this topic Hepatitis B Vaccines Aged Out No long er eligible based on patient's age to complete this topic IPV Vaccines Aged Out No longer eligi ble based on patient's age to complete this topic MMR Vaccines Aged Out No longer eligi ble based on patient's age to complete this topic Meningococcal ACWY Vaccine Aged Out N o longer eligible based on patient's age to complete this topic Meningococcal B Vacine Aged Out No lo nger eligible based on patient's age to complete this topic Pneumococcal Vaccine: Pediat rics (0 to 5 Years) and At-Risk Patients (6 to 64 Years) Aged Out No longer eligible b ased on patient's age to complete this topic RSV Immunization Patients Un sahara 20 months Aged Out No longer eligible b ased on patient's age to complete this topic Varicella Vaccines Aged Out No longer eligible based on patient's age to complete this topic Care Teams Launderer Hand Relationship Specialty Start Date End Date Jason Awan MD [address] [place] [address] PCP - General Internal Medicine 02/12/19
--- OUTSIDE RECORDS SUMMARY | 2024-10-09 07:45 | XMS_ITS | Encounter Summary ---
Author Organization [facility] Address [address] [place] [address] Care Team Providers Care Brokerage Branch Manager Name Role Phone Jason Awan MD Primary Care Provider [phone] Encounter Details Date Type Department Care Team (Late st Contact Info) Description 01/23/2024 Lab Requisition [facility] [address] [place] [address] Mekhi Blanco MD need updated information Encounter for preprocedural laboratory examination Social History Tobacco Use Types Packs/Day Years [...] on file Sexual Orientation Not on file documented as of this encounter Plan of Treatment Not on file documented as of this encounter Visit Diagnoses Diagnosis Encounter for preprocedural laboratory examination documented in this encounter Care Teams Brokerage Branch Manager Relationship Specialty Start Date End Date Jason Awan MD [address] [place] [address] PCP - General Internal Medicine 02/12/19 documented as of this encounter
--- OUTSIDE RECORDS SUMMARY | 2024-10-09 07:46 | XMS_ITS | Clinical Summary ---
Author Organization [facility] Address [address] [place] [address] Care Team Providers Care Candy Puller Name Role Phone Lv Jason Jefferson Primary Care Provider Allergies Active Allergy Reactions Criticality Noted Date Comments Dexamethasone 03/18/2019 Medications No known medications Family History Medical History Relation Comments Diabetes Father Hypertension Father Breast cancer Mother Hypertension Mother Hypertension Sister Relation Status Comments Father Mother Sister Social History Tobacco Use Types Packs/Day Years Used Date Smoking Tobacco: Former Smokeless Tobacco: Never Alcohol Use Standard Drinks/Week Comments Yes 0 (1 standard drink = 0.6 oz pur e alcohol) Comments Unknown Sex and Gender Information Value Date Recorded Sex Assigned at Not on file Legal Sex Female 11:27 AM EDT Gender Identity Not on file Sexual Orientation Not on file Last Filed Vital Signs Vital Sign Reading Time Taken Comments Blood Pressure 163/88 04/24/2019 11:24 AM EDT Pulse 99 04/24/2019 11:24 AM EDT Temperature - - Respiratory Rate - - Oxygen Saturation - - Inhaled Oxygen Concentration - - Weight 92.1 kg (203 lb) 04/24/2019 11:24 AM EDT Height 167.6 cm (5' 6 ) 04/24/2019 11:24 AM EDT Body Mass Index 32.77 04/24/2019 11:24 AM EDT Plan of Treatment Health Maintenance Due Date Last Done Comments Breast Cancer Screening 1963 CT Colonography 1963 Colonoscopy 1963 Colorectal Cancer Screening 1963 FIT-DNA (Cologuard) 1965 FIT 1963 FOBT 1965 Flex Sigmoidoscopy - 5y 1963 HIV Screening 1965 DTaP,Tdap,and Td Vaccines (1 - Tdap) 10/21/1981 Pap Smear 10/21/1984 Cervical Cancer Screening 10/21/1993 HPV/Cotest 10/21/1993 Zoster Vaccines (1 of 2) 10/21/2013 COVID-19 Vaccine (1 - 2023-2 5 season) 2024 Influenza Vaccine (#1) 2024 HPV Vaccines Aged Out No longer eligi ble based on patient's age to complete this topic Hepatitis A Vaccines Aged Out No long er eligible based on patient's age to complete this topic MMR Vaccines Aged Out No longer eligi ble based on patient's age to complete this topic Meningococcal Vaccine Aged Out No william viv eligible based on patient's age to complete this topic Pneumococcal Vaccine: Pediat rics (0 to 5 Years) and At-Risk Patients (6 to 64 Years) Aged Out No longer eligible b ased on patient's age to complete this topic Insurance Care Teams Candy Puller Relationship Specialty Start Date End Date Jason Awan [address] [place] [address] PCP - General 04/19/19
--- OUTSIDE RECORDS SUMMARY | 2024-10-09 07:46 | XMS_ITS | Clinical Summary ---
Author Organization [facility] Address [address] [place] [address] Care Team Providers Care Tobacco Cutter Name Role Phone Jason Awan MD Primary Care Provider [phone] Allergies Active Allergy Reactions Criticality Noted Date Comments Dexamethasone 03/18/2019 Medications No known medications Active Problems No known active problems Family History Medical History Relation Name Comments Hypertension Father Hyperlipidemia Mother Hypertension Mother Hyperlipidemia Sister Hypertension Sister Relation Name Status Comments Father Mother Sister Social History Tobacco Use Types Packs/Day Years Used Date Smoking Tobacco: Former Cigarettes Q uit: 1998 Smokeless Tobacco: Never Alcohol Use Standard Drinks/Week Comments Yes 2 (1 standard drink = 0.6 oz pur e alcohol) Sex and Gender Information Value Date Recorded Sex Assigned at Not on file Gender Identity Not on file Sexual Orientation Not on file Last Filed Vital Signs Vital Sign Reading Time Taken Comments Blood Pressure - - Pulse - - Temperature - - Respiratory Rate - - Oxygen Saturation - - Inhaled Oxygen Concentration - - Weight 92.5 kg (204 lb) 04/15/2019 1:44 PM EDT Height 165.1 cm (5' 5 ) 04/15/2019 1:44 PM EDT Body Mass Index 33.95 04/15/2019 1:44 PM EDT Plan of Treatment Health Maintenance Due Date Last Done Comments Hepatitis C Screening 1965 COVID-19 Vaccine (#1) 04/23/1964 Depression Screening 1975 BMI Counseling 10/21/1981 Preventative Health Evaluation 10/21/1981 DTap / Tdap / Td (1 - Tdap) 10/21/1982 Cervical Cancer Screening (P ap Smear) 10/21/1984 Colon Cancer Screening (Colonoscopy) 10/21/2008 Breast Cancer Screening (Mammogram) 10/21/2013 Shingrix-Zoster Vaccine (1 of 2) 10/21/2013 Influenza Vaccine (#1) 2024 RSV Adult > 60+ Yrs or Pregn ant (1 - 1-dose 75+ series) 10/21/2038 Hepatitis B Vaccines Aged Out No long er eligible based on patient's age to complete this topic Pneumococcal Vaccine Aged Out No long er eligible based on patient's age to complete this topic RSV Ped < 20 months Aged Out No longe r eligible based on patient's age to complete this topic Insurance Payer Benefit Plan / Group Subscriber ID Effective Dates Phone Address Type [facility] [id number] 2019-Pres ent [address] [place] [address] [facility] [id number] 10/05-Pres ent [address] [place] [address] O Care Teams Tobacco Cutter Relationship Specialty Start Date End Date aJson Awan MD [address] [facility] [place] [address] PCP - General Internal Medicine 02/12/19
--- OUTSIDE RECORDS SUMMARY | 2024-10-09 07:46 | XMS_ITS | Patient Health Record ---
Author Organization [facility] Address [address] [place] [address] Care Team Providers Care Dental Chair Assembler Name Role Phone Referred, Self Unavailable [phone] Reason For Referral No Information Plan Of Treatment No Information Insurance Providers Payer Name Payer Address Payer Phone Subscriber Number Group Number Insured Name Patient Relationship to Insured Coverage Start Date Coverage End Date [facility] [address] [address] [place] [address] [id number] Alisa Chávez Self - patient is the insured
[2024-10-09 10:43] LABS: MANUAL DIFF FLAG NO
[2024-10-09 10:55] LABS: Basophils Absolute Auto 0.1 X10*3/uL (0.0-0.2); Basophils Percent Auto 0.7 % (0-2); Eosinophils Absolute Auto 0.1 X10*3/uL (0.0-0.4); Eosinophils Percent Auto 1.7 % (0-4); Hematocrit 35.5 % (37.0-47.0); Hemoglobin 11.5 g/dl (12.0-16.0); Imm Gran Abs Auto 0.03 X10*3/uL (0.00-0.03); Imm Gran Pct Auto 0.4 % (0.0-0.4); Lymphocytes Absolute Auto 2.4 X10*3/uL (1.2-4.9); Lymphocytes Percent Auto 34.4 % (20-40); Mean Corpuscular HGB Conc 32.4 g/dl (31.0-35.0); Mean Corpuscular Hemoglobin 27.4 pg (27.0-33.0); Mean Corpuscular Volume 84.5 fL (80.0-98.0); Mean Platelet Volume 11.6 fL (9.4-12.3); Monocytes Absolute Auto 0.6 X10*3/uL (0.1-1.2); Monocytes Percent Auto 8.4 % (2-11); Neutrophils Absolute Auto 3.7 x10*3/uL (2.0-8.3); Neutrophils Percent Auto 54.4 % (45-73); Platelet Count 265 X10*3/uL (160-400); Red Cell Distribution Width 14.7 % (11.0-16.0); White Blood Count 6.9 X10*3/uL (4.8-10.8)
[2024-10-09 11:18] LABS: Creatinine Urine 87.63 mg/dL; Microalbum/Creatinine Ratio Ur 17.1 ug/mg cr (<30)
[2024-10-09 11:21] LABS: Estimated Average Glucose 157 mg/dL; Hemoglobin A1C 166.0491 umol/L; Hemoglobin A1c % 7.1 % (<6.0)
[2024-10-09 11:24] LABS: Alanine Aminotransferase 14 U/L (0-31); Albumin Level 4.2 g/dL (3.5-5.0); Alkaline Phosphatase 92 U/L (39-117); Anion Gap 12 (12-20); Aspartate Amino Transferase 18 U/L (5-31); Bilirubin Total 0.5 mg/dL (0.0-1.0); Blood Urea Nitrogen 13 mg/dL (9-16); Calcium 9.5 mg/dL (8.4-10.2); Carbon Dioxide 24 mmol/L (22-29); Chloride 109 mmol/L (96-108); Cholesterol 142 mg/dL (<200); Estimated Glomerular Filt Rate > 60; Glucose Fasting 168 mg/dL (60-99); HDL Cholesterol 48 mg/dL (>40); LDL Cholesterol Calculated 72 mg/dL (<100); Potassium 3.7 mmol/L (3.3-5.1); Sodium 141 mmol/L (135-145); Total Protein 7.1 g/dL (6.5-8.0); Triglycerides 114 mg/dL (<150)
== END 2024-10-09 07:44 | disposition home or self-care (01) ==
LOC: HO.HMGCLDS 07:43
PROVIDERS: PCP Internal Medicine; Visit Provider Internal Medicine
DX: E11.9 Type 2 diabetes mellitus without complications (principal)
CPT/HCPCS: 36415; 80053; 80061; 82043; 82570; 83036; 85025

== ENCOUNTER 2024-10-10 10:43 | Outpatient (AMB) | payer OTHER, SELFPAY ==
[2024-10-10 10:54] VITALS: BP 124/70; PULSE 96; RESP 18; TEMP 36.8; O2SAT 98; BMI 30.8
--- NOTE | 2024-10-10 10:54 | MHC.PC.OV ---
Vital Signs 10/10/24 10:54 Height 5 ft 5 in Weight 185 lb BMI 30.8 BP 124/70 Blood Pressure Location Lt brachial Position Sitting Respiration 18 Pulse 96 Pulse Source Pulse Oximeter Temp 98.2 F Temp Source Oral Pulse Oximetry (%) 98 Oxygen Delivery Method Room Air Intake Visit Reasons: Follow up on DM and labs Intake Note: Pt is here today for a follow up visit on DM and labs. Allergies dexamethasone [From Decadron] Allergy (Unknown, Unverified 10/10/24 10:55) LIGHTHEADED From Decadron Allergy (Unknown, Uncoded 10/10/24 10:55) LIGHTHEADED Medication List - Last Reconciled 10/10/24 by Mary Woodard MD acetaminophen ER (Tylenol 8 Hour) 1,000 mg PO Q12H PRN aspirin 81 mg PO DAILY blood sugar diagnostic (FreeStyle Lite Strips) Test blood sugar once a day blood-glucose meter (FreeStyle Lite Meter kit) As directed blood-glucose sensor (KitBoost G7 Sensor device) As directed carvedilol 6.25 mg PO BID lancets (FreeStyle Lancets) Test blood sugar once a day lisinopril 40 mg PO DAILY metformin ER 750 mg PO BID rosuvastatin 20 mg PO DAILY tirzepatide (Mounjaro) 5 mg (0.5 mL) subcut QWEEK Tobacco use date assessed: 10/10/24 Dental Screening Dental Screen Date: 06/13/24 HPI Follow up on DM and labs HPI Details Patient presents for the follow-up of type 2 diabetes hypertension hyperlipidemia. Patient reports improving fasting blood glucose to less than 140. She has difficulty with being compliant with ADA diet due to selling her house and moving. 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 Housing: House Patient Tobacco Use Status: Former Tobacco user e-Cigarette/Vaping Use: Never Used service: No Current occupational status: employed Cognitive needs: No Hearing needs: No Vision needs: Yes Questionnaire PHQ-9 Over the last 2 weeks, how often have you been bothered by any of the following problems? 1. Little interest or pleasure in doing things: not at all 2. Feeling down, depressed, or hopeless: not at all 3. Trouble falling or staying asleep, or sleeping too much: not at all 4. Feeling tired or having little energy: not at all 5. Poor appetite or overeating: not at all 6. Feeling bad about yourself - or that you are a failure or have let yourself or your family down: not at all 7. Trouble concentrating on things, such as reading the newspaper or watching television: not at all 8. Moving or speaking so slowly that other people could have noticed. Or the opposite - being so fidgety or restless that you have been moving around a lot more than usual: not at all 9. Thoughts that you would be better off or of hurting yourself in some way: not at all Total score: 0 Depression Screening Interpretation: Negative Depression Screening Done: Yes 59321 - PHQ-9 Billing: Yes Source: Developed by Drs. Osvaldo Russo, Meghan Hurt, Scooby Lopez and colleagues, with an educational ivelisse from [employer]. Thrive Questionnaire Date Thrive assessed: 07/11/24 I am a: Patient What is your living situation today?: I have a steady place to live Within the past 12 months, did the food you bought not last and you didn't have the money to get more?: Never true Within the past 12 months, did you worry whether your food would run out before you got money to buy more?: Never true Do you have trouble paying for medicines?: No Do you have trouble getting transportation to medical appointments?: No Do you have trouble paying your heating and electricity bill?: No Do you have trouble taking care of your child, family member or friend?: No Do you have trouble with day-to-day activities such as bathing, preparing meals, shopping, managing finances, etc.?: No Are you currently unemployed and looking for a job?: No Are you interested in more education?: No Please select the resources that you would like help with: None Currently or been in a relationship where the following occur: No concerns reported THRIVE Score: 0 ROBERTA-7 AMB Questionnaire ROBERTA-7 Date ROBERTA - 7 assessed: 07/11/24 Source: Developed by DrsLalito Russo, Meghan Hurt, Scooby Lopez and colleagues, with an educational ivelisse from [employer]. Review of Systems Const All systems reviewed & are unremarkable except as noted in HPI and below ENT Reports no additional complaints Card Reports no additional complaints Resp Reports no additional complaints GI Reports no additional complaints Reports no additional complaints Physical exam (Primary Care) Vital Signs: Last Vital Signs Temp 98.2 F 10/10/24 10:54 Pulse 96 10/10/24 10:54 Resp 18 10/10/24 10:54 BP 124/70 10/10/24 10:54 Pulse Ox 98 10/10/24 10:54 Oxygen Delivery Method Room Air 10/10/24 10:54 BMI result Body Mass Index 30.8 Tobacco/Smoking Status: Tobacco use Status Tobacco use date assessed 10/10/24 10/10/24 11:01 Patient Tobacco Use Status Former Tobacco user 10/10/24 10:54 e-Cigarette/Vaping Use Never Used 10/10/24 10:54 PHQ-9: PHQ-9 Score PHQ-9: Total score 0 10/10/24 11:01 Depression Screening Interpretation: Negative Thrive Assessment: Date of Thrive Assessment Date Thrive assessed 07/11/24 10/10/24 10:54 Currently or been in a relationship where the following occur: No concerns reported Const General: no acute distress HENMT Head: Yes normal to inspection Mouth: Normal oral and palatal mucosa present Neck Neck: Yes supple Resp Effort & Inspection: normal respiratory effort Auscultation: clear to auscultation bilaterally Cardio Rhythm: regular rhythm Heart sounds: S1 normal heart sound present and S2 normal heart sound present GI Inspection: Yes normal to inspection Coding Level of Care Code Est Pt Level 4 (38728) Diagnoses DM type 2 (diabetes mellitus, type 2) E11.9 Hyperlipidemia E78.5 HTN (hypertension) I10 Additional Codes PHQ-9 - 67354 - PHQ-9 Billing: Yes ([id number]) Assessment & Plan Assessment & Plan (1) DM type 2 (diabetes mellitus, type 2): Code(s): E11.9 - Type 2 diabetes mellitus without complications Category: Medical Plan: A1c is 7.1, ADA diet regular physical activity discussed with the patient increase Mounjaro to 7.5 mg weekly continue metformin. Patient will follow-up in 3 months with a fasting labs before (2) Hyperlipidemia: Code(s): E78.5 - Hyperlipidemia, unspecified Category: Medical Plan: Continue statin (3) HTN (hypertension): Code(s): I10 - Essential (primary) hypertension Category: Medical Plan: Continue current medications Orders: Orders Complete Blood Count Auto Diff 3 Months E11.9 - Type 2 diabetes mellitus without complications, E78.5 - Hyperlipidemia, unspecified, I10 - Essential (primary) hypertension Comprehensive [place]. Panel Fast 3 Months E11.9 - Type 2 diabetes mellitus without complications, E78.5 - Hyperlipidemia, unspecified, I10 - Essential (primary) hypertension Hemoglobin A1c 3 Months E11.9 - Type 2 diabetes mellitus without complications, E78.5 - Hyperlipidemia, unspecified, I10 - Essential (primary) hypertension Lipid Panel 3 Months E11.9 - Type 2 diabetes mellitus without complications, E78.5 - Hyperlipidemia, unspecified, I10 - Essential (primary) hypertension Microalbumin, Random (w Creat) 3 Months E11.9 - Type 2 diabetes mellitus without complications, E78.5 - Hyperlipidemia, unspecified, I10 - Essential (primary) hypertension Medications: New tirzepatide (Mounjaro) 7.5 mg (0.5 mL) subcut QWEEK 2 mL 1RF Refilled carvedilol must administer with a meal/food 6.25 mg PO BID 180 tabs 3RF lisinopril 40 mg PO DAILY 90 tabs 3RF metformin ER 750 mg PO BID 180 tabs 3RF Discontinued tirzepatide (Mounjaro) Discontinued Reason: Doctor's Order 5 mg (0.5 mL) subcut QWEEK 2 mL 1RF
--- OUTSIDE RECORDS SUMMARY | 2024-10-10 12:53 | XMS_ITS | Encounter Summary ---
Author Organization [facility] Address [address] [place] [address] Care Team Providers Care Yardage Control Operator Forming Name Role Phone Jason Awan MD Primary Care Provider [phone] Encounter Details Date Type Department Care Team (Late st Contact Info) Description 01/23/2024 Lab Requisition [facility] [address] [place] [address] Mekhi Blanco MD need updated information Encounter [...] examination documented in this encounter Care Teams Yardage Control Operator Forming Relationship Specialty Start Date End Date Jason Awan MD [address] [place] [id number] PCP - General Internal Medicine 02/12/19 documented as of this encounter
--- OUTSIDE RECORDS SUMMARY | 2024-10-10 12:54 | XMS_ITS | Clinical Summary ---
Author Organization [facility] Address [address] [place] [address] Phone Care Team Providers Care Freight Rate Clerk Name Role Phone Jason Awan MD Primary Care Provider [phone] Surgical History Surgery Date Site/Laterality Comments KNEE [...] age to complete this topic Care Teams Freight Rate Clerk Relationship Specialty Start Date End Date Jason Awan MD [address] [place] [address] PCP - General Internal Medicine 02/12/19
--- OUTSIDE RECORDS SUMMARY | 2024-10-10 12:54 | XMS_ITS | Clinical Summary ---
Author Organization [facility] Address [address] [place] [address] Care Team Providers Care Electric Refrigerator Preparer Name Role Phone Lv Jason Jefferson Primary Care Provider [phone] Allergies Active Allergy Reactions Criticality Noted Date [...] to complete this topic Insurance Care Teams Electric Refrigerator Preparer Relationship Specialty Start Date End Date Jason Awan [address] [place] [address] PCP - General 04/19/19
--- OUTSIDE RECORDS SUMMARY | 2024-10-10 12:54 | XMS_ITS | Clinical Summary ---
Author Organization [facility] Address [address] [place] [address] Care Team Providers Care Char House Supervisor Name Role Phone Jason Awan MD Primary Care Provider [phone] Allergies Active Allergy Reactions Criticality Noted Date [...] Subscriber ID Effective Dates Phone Address Type [facility] [id number] 2019-Pres ent [address] [place] [address] [facility] [id number] 10/05-Pres ent [address] [place] [address] O Care Teams Char House Supervisor Relationship Specialty Start Date End Date Jason Awan MD [address] [facility] [place] [address] PCP - General Internal Medicine 02/12/19
--- OUTSIDE RECORDS SUMMARY | 2024-10-10 12:54 | XMS_ITS | Patient Health Record ---
Author Organization [facility] Address [address] [place] [address] Care Team Providers Care Editor Dictionary Name Role Phone Referred, Self Unavailable [phone] Reason For Referral No Information Plan Of Treatment No Information Insurance Providers Payer Name Payer Address Payer Phone Subscriber Number Group Number Insured Name Patient Relationship to Insured Coverage Start Date Coverage End Date [facility] [address] [address] [place] [address] [id number] Alisa Chávez Self - patient is the insured
== END 2024-10-10 11:43 | disposition home or self-care (01) ==
PROVIDERS: PCP Internal Medicine; Visit Provider Internal Medicine
DX: E11.9 Type 2 diabetes mellitus without complications (principal); E78.5 Hyperlipidemia, unspecified; I10 Essential (primary) hypertension

== ENCOUNTER → 2024-10-10 10:43 | Outpatient (BNVA) | payer OTHER, SELFPAY | PROVIDERS: PCP Internal Medicine; Visit Provider Internal Medicine | DX: E11.9 Type 2 diabetes mellitus without complications (principal); E78.5 Hyperlipidemia, unspecified; I10 Essential (primary) hypertension; Z79.84 Long term (current) use of oral hypoglycemic drugs; Z79.899 Other long term (current) drug therapy | CPT/HCPCS: 96127 ==

== ENCOUNTER 2025-01-20 09:11 | Outpatient (REF) | payer OTHER, SELFPAY ==
--- OUTSIDE RECORDS SUMMARY | 2025-01-20 09:48 | XMS_ITS | Patient Health Record ---
Author Organization [facility] Address [address] [place] [address] Care Team Providers Care Fancy Packer Name Role Phone Jason Awan MD Primary Care Provider Yusuf Elam Unavailable [phone] Allergies Allergen (clinical drug ingredient) Drug/Non Drug Allergy documented on EMR Reaction Allergy Type Onset Date Status decadron (uncoded) Unknown Allergy A ctive Reason For Referral No Information Medications Medication SIG (Take, Route, Frequency, Duration) Notes Start Date End Date Status Ortho-Novum (28) Active Ventolin HFA Active Compression Stockings 20-30mm Hg as directed Active Problems Problem Type SNOMED Code ICD Code Onset Dates Problem Status W/U Status Risk Notes Problem Pain in Limb (729.5) Active confirmed Plan Of Treatment Pending Test Test Name Order Date X ray : Foot, left 2V 07/05/2011 X ray : Foot, left 2V 12/06/2011 X ray : Foot, left 2V 10/18/2011 X ray : Foot, left 2V 09/23/2011 X ray : Foot, left 2V 09/09/2011 X ray : Foot, left 2V 08/30/2011 X ray : Foot, right 2V 07/05/2011 Insurance Providers Payer Name Payer Address Payer Phone Subscriber Number Group Number Insured Name Patient Relationship to Insured Coverage Start Date Coverage End Date [facility] [address] [place] [address] [phone] [id number] Alisa Chávez Self - patient is the insured Medical (General) History Medical History History ICD Code NONE Surgical History Surgery Date(Month/Year) knee surgery, right 2008 & 2010 uterine sugery 1993 & 2003 bunionectomy 08/25/2011
[2025-01-20 13:21] LABS: MANUAL DIFF FLAG NO
[2025-01-20 13:31] LABS: Basophils Absolute Auto 0.1 X10*3/uL (0.0-0.2); Basophils Percent Auto 0.6 % (0-2); Eosinophils Absolute Auto 0.2 X10*3/uL (0.0-0.4); Eosinophils Percent Auto 1.5 % (0-4); Hematocrit 34.8 % (37.0-47.0); Hemoglobin 11.6 g/dl (12.0-16.0); Imm Gran Abs Auto 0.03 X10*3/uL (0.00-0.03); Imm Gran Pct Auto 0.3 % (0.0-0.4); Lymphocytes Absolute Auto 2.4 X10*3/uL (1.2-4.9); Lymphocytes Percent Auto 22.7 % (20-40); Mean Corpuscular HGB Conc 33.3 g/dl (31.0-35.0); Mean Corpuscular Hemoglobin 27.9 pg (27.0-33.0); Mean Corpuscular Volume 83.7 fL (80.0-98.0); Mean Platelet Volume 11.5 fL (9.4-12.3); Monocytes Absolute Auto 0.5 X10*3/uL (0.1-1.2); Monocytes Percent Auto 4.3 % (2-11); Neutrophils Absolute Auto 7.3 x10*3/uL (2.0-8.3); Neutrophils Percent Auto 70.6 % (45-73); Platelet Count 262 X10*3/uL (160-400); Red Blood Count 4.16 X10*6/uL (4.20-5.50); Red Cell Distribution Width 14.3 % (11.0-16.0); White Blood Count 10.4 X10*3/uL (4.8-10.8)
[2025-01-20 13:39] LABS: Creatinine Urine 116.74 mg/dL; Microalbum/Creatinine Ratio Ur 9.4 ug/mg cr (<30)
[2025-01-20 13:43] LABS: Estimated Average Glucose 143 mg/dL; Hemoglobin A1C 151.8321 umol/L; Hemoglobin A1c % 6.6 % (<6.0)
[2025-01-20 13:57] LABS: Alanine Aminotransferase 16 U/L (0-31); Albumin Level 4.3 g/dL (3.5-5.0); Alkaline Phosphatase 75 U/L (39-117); Anion Gap 13 (12-20); Aspartate Amino Transferase 20 U/L (5-31); Bilirubin Total 0.3 mg/dL (0.0-1.0); Blood Urea Nitrogen 19 mg/dL (9-16); Calcium 9.5 mg/dL (8.4-10.2); Carbon Dioxide 25 mmol/L (22-29); Chloride 108 mmol/L (96-108); Cholesterol 153 mg/dL (<200); Estimated Glomerular Filt Rate > 60; Glucose Fasting 164 mg/dL (60-99); HDL Cholesterol 53 mg/dL (>40); LDL Cholesterol Calculated 88 mg/dL (<100); Potassium 4.9 mmol/L (3.3-5.1); Sodium 141 mmol/L (135-145); Total Protein 6.5 g/dL (6.5-8.0); Triglycerides 63 mg/dL (<150)
== END 2025-01-20 09:12 | disposition home or self-care (01) ==
LOC: HO.HMGCLDS 09:11
PROVIDERS: PCP Internal Medicine; Visit Provider Internal Medicine
DX: E11.9 Type 2 diabetes mellitus without complications (principal); E78.5 Hyperlipidemia, unspecified; I10 Essential (primary) hypertension
CPT/HCPCS: 36415; 80053; 80061; 82043; 82570; 83036; 85025

== ENCOUNTER 2025-01-22 11:27 | Outpatient (AMB) | payer OTHER, SELFPAY ==
[2025-01-22 11:34] VITALS: BP 126/76; PULSE 77; RESP 18; TEMP 36.8; O2SAT 99; BMI 30.4
--- NOTE | 2025-01-22 11:34 | A.OFFPC_ITS ---
Vital Signs 01/22/25 11:34 Height 5 ft 5 in Weight 183 lb BMI 30.4 BP 126/76 Blood Pressure Location Lt brachial Position Sitting Respiration 18 Pulse 77 Pulse Source Pulse Oximeter Temp 98.2 F Temp Source Oral Pulse Oximetry (%) 99 Oxygen Delivery Method Room Air Intake Visit Reasons: 3 months follow up Intake Note: Pt is here today for 3 months follow up visit on DM and labs. Allergies dexamethasone (From Decadron) Allergy (Unknown, Unverified 01/22/25 11:34) LIGHTHEADED From Decadron Allergy (Unknown, Uncoded 01/22/25 11:34) LIGHTHEADED Medication List - Last Reconciled 01/22/25 by Mary Woodard MD acetaminophen ER (Tylenol 8 Hour) 1,000 mg PO Q12H PRN aspirin 81 mg PO DAILY blood sugar diagnostic (FreeStyle Lite Strips) Test blood sugar once a day blood-glucose meter (FreeStyle Lite Meter kit) As directed blood-glucose sensor ([employer] G7 Sensor device) As directed carvedilol 6.25 mg PO BID lancets (FreeStyle Lancets) Test blood sugar once a day lisinopril 40 mg PO DAILY metformin ER 750 mg PO BID rosuvastatin 20 mg PO DAILY tirzepatide (Mounjaro) 10 mg (0.5 mL) subcut QWEEK Tobacco use date assessed: 01/22/25 Dental Screening Dental Screen Date: 01/22/25 Did you have a dental visit in the last 12 months?: Yes Did you have a dental problem in the last 6 months where you did not have access to dental care?: No Was dental information given to patient?: Patient has dentist HPI 3 months follow up HPI Details Pt presents for f/u DM 2, hypercholest, HTN. Patient has been decreasing caloric intake increasing physical activity and has not lost significant weight is for the last 3 months. 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 1. Little interest or pleasure in doing things: not at all 2. Feeling down, depressed, or hopeless: not at all 3. Trouble falling or staying asleep, or sleeping too much: not at all 4. Feeling tired or having little energy: not at all 5. Poor appetite or overeating: not at all 6. Feeling bad about yourself - or that you are a failure or have let yourself or your family down: not at all 7. Trouble concentrating on things, such as reading the newspaper or watching television: not at all 8. Moving or speaking so slowly that other people could have noticed. Or the opposite - being so fidgety or restless that you have been moving around a lot more than usual: not at all 9. Thoughts that you would be better off or of hurting yourself in some way: not at all Total score: 0 Depression Screening Interpretation: Negative Depression Screening Done: Yes 82195 - PHQ-9 Billing: Yes Source: Developed by Drs. Osvaldo Russo, Meghan Hurt, Scooby Lopez and colleagues, with an educational ivelisse from [employer]. Thrive Questionnaire Date Thrive assessed: 01/22/25 I am a: Patient What is your living situation today?: I have a steady place to live Within the past 12 months, did the food you bought not last and you didn't have the money to get more?: Never true Within the past 12 months, did you worry whether your food would run out before you got money to buy more?: Never true Do you have trouble paying for medicines?: No Do you have trouble getting transportation to medical appointments?: No Do you have trouble paying your heating and electricity bill?: No Do you have trouble taking care of your child, family member or friend?: No Do you have trouble with day-to-day activities such as bathing, preparing meals, shopping, managing finances, etc.?: No Are you currently unemployed and looking for a job?: No Are you interested in more education?: No Please select the resources that you would like help with: None Currently or been in a relationship where the following occur: No concerns reported THRIVE Score: 0 AUDIT C Alcohol Use Questionnaire (AUDIT-C) 1. How often do you have a drink containing alcohol?: Monthly or less 2. How many drinks containing alcohol do you have on a typical day when you are drinking?: 1 or 2 3. How often do you have six or more drinks on one occasion?: Never Total Score: 1 ROBERTA-7 AMB Questionnaire ROBERTA-7 Date ROBERTA - 7 assessed: 01/22/25 Feeling nervous, anxious, or on edge: 0 = Not at all Not being able to stop or control worryin = Not at all Worrying too much about different things: 0 = Not at all Trouble relaxin = Not at all Being so restless that it is hard to sit still: 0 = Not at all Becoming easily annoyed or irritable: 0 = Not at all Feeling afraid as if something awful might happen: 0 = Not at all Total ROBERTA-7 score (0-4 normal; 5-9 mild; 10-14 moderate; 15-21 severe): 0 Source: Developed by Drs. Osvaldo Russo, Meghan Hurt, Scooby Lopez and colleagues, with an educational ivelisse from [employer]. ROBERTA-7 Assessment Billing ROBERTA-7 Assessment Tool: ROBERTA-7 Assessment 33485 Review of Systems Const All systems reviewed & are unremarkable except as noted in HPI and below ENT Reports no additional complaints Card Reports no additional complaints Resp Reports no additional complaints GI Reports no additional complaints Reports no additional complaints Physical exam (Primary Care) Vital Signs: Last Vital Signs Temp 98.2 F 01/22/25 11:34 Pulse 77 01/22/25 11:34 Resp 18 01/22/25 11:34 BP 126/76 01/22/25 11:34 Pulse Ox 99 01/22/25 11:34 Oxygen Delivery Method Room Air 01/22/25 11:34 BMI result Body Mass Index 30.4 Tobacco/Smoking Status: Tobacco use Status Tobacco use date assessed 01/22/25 01/22/25 11:35 Patient Tobacco Use Status Former Tobacco user 01/22/25 11:35 e-Cigarette/Vaping Use Never Used 01/22/25 11:35 PHQ-9: PHQ-9 Score PHQ-9: Total score 0 01/22/25 11:45 Depression Screening Interpretation: Negative Thrive Assessment: Date of Thrive Assessment Date Thrive assessed 01/22/25 01/22/25 11:35 Currently or been in a relationship where the following occur: No concerns reported Const General: no acute distress HENMT Head: Yes normal to inspection Neck Neck: Yes supple Resp Effort & Inspection: normal respiratory effort Auscultation: clear to auscultation bilaterally Cardio Rhythm: regular rhythm Heart sounds: S1 normal heart sound present and S2 normal heart sound present GI Inspection: Yes normal to inspection Palpation (GI): Soft to palpation Coding Level of Care Code Est Pt Level 4 (20868) Diagnoses HTN (hypertension) I10 Hyperlipidemia E78.5 DM type 2 (diabetes mellitus, type 2) E11.9 Additional Codes ROBERTA-7 Assessment Billing - ROBERTA-7 Assessment Tool: ROBERTA-7 Assessment 56237 ([id number]) PHQ-9 - 05715 - PHQ-9 Billing: Yes ([id number]) Assessment & Plan Assessment & Plan (1) HTN (hypertension): Code(s): I10 - Essential (primary) hypertension Category: Medical Plan: Continue lisinopril and carvedilol (2) Hyperlipidemia: Code(s): E78.5 - Hyperlipidemia, unspecified Category: Medical Plan: Continue statin (3) DM type 2 (diabetes mellitus, type 2): Code(s): E11.9 - Type 2 diabetes mellitus without complications Category: Medical Plan: A1c is down to 6.6, ADA diet increase exercise decreasing caloric intake discussed with the patient. Increase Mounjaro to 10 mg weekly for 1 month and then patient will report any weight loss and side effects so the dose could be increased to a next higher dose 12.5 mg Orders: Orders Vitamin B12 and Folate 3 Months E11.9 - Type 2 diabetes mellitus without complications, E78.5 - Hyperlipidemia, unspecified, I10 - Essential (primary) hypertension Complete Blood Count Auto Diff 3 Months I10 - Essential (primary) hypertension Comprehensive [place]. Panel Fast 3 Months E11.9 - Type 2 diabetes mellitus without complications, E78.5 - Hyperlipidemia, unspecified, I10 - Essential (primary) hypertension Hemoglobin A1c 3 Months E11.9 - Type 2 diabetes mellitus without complications, E78.5 - Hyperlipidemia, unspecified, I10 - Essential (primary) hypertension Lipid Panel 3 Months E11.9 - Type 2 diabetes mellitus without complications, E78.5 - Hyperlipidemia, unspecified, I10 - Essential (primary) hypertension IRON PROFILE 3 Months E11.9 - Type 2 diabetes mellitus without complications, E78.5 - Hyperlipidemia, unspecified, I10 - Essential (primary) hypertension Medications: New tirzepatide (Mounjaro) 10 mg (0.5 mL) subcut QWEEK 2 mL 1RF Discontinued tirzepatide (Mounjaro) Discontinued Reason: Doctor's Order 7.5 mg (0.5 mL) subcut QWEEK 2 mL 1RF
--- OUTSIDE RECORDS SUMMARY | 2025-01-22 13:22 | XMS_ITS | Patient Health Record ---
Author Organization [facility] Address [address] [place] [address] Care Team Providers Care Production Assistant Name Role Phone Jason Awan MD Primary Care Provider Yusuf Elam Unavailable [phone] Allergies Allergen (clinical drug ingredient) Drug/Non Drug [...] 07/05/2011 X ray : Foot, left 2V 08/30/2011 X ray : Foot, left 2V 09/09/2011 X ray : Foot, left 2V 09/23/2011 X ray : Foot, left 2V 10/18/2011 X ray : Foot, left 2V 12/06/2011 X ray : Foot, right 2V 07/05/2011 Insurance Providers Payer Name Payer Address Payer Phone Subscriber Number Group Number Insured Name Patient Relationship to Insured Coverage Start Date Coverage End Date [facility] [address] [place] [address] [phone] [id number] Alisa Chávez Self - patient is the insured Medical (General) History Medical History History ICD Code NONE Surgical History Surgery Date(Month/Year) knee surgery, right 2008 & 2010 uterine sugery 1993 & 2003 bunionectomy 08/25/2011
== END 2025-01-22 12:58 | disposition home or self-care (01) ==
LOC: HO.HMCC 11:28
PROVIDERS: PCP Internal Medicine; Visit Provider Internal Medicine
DX: I10 Essential (primary) hypertension (principal); E78.5 Hyperlipidemia, unspecified; E11.9 Type 2 diabetes mellitus without complications

== ENCOUNTER → 2025-01-22 11:27 | Outpatient (BNVA) | payer OTHER, SELFPAY | PROVIDERS: PCP Internal Medicine; Visit Provider Internal Medicine | DX: E11.9 Type 2 diabetes mellitus without complications (principal); I10 Essential (primary) hypertension; E78.5 Hyperlipidemia, unspecified | CPT/HCPCS: 96127 ==

== ENCOUNTER 2025-03-12 10:41 | Outpatient (AMB) | payer OTHER, SELFPAY ==
--- NOTE | 2025-03-12 11:11 | MHC.PC.OV ---
Vital Signs 03/12/25 11:12 Height 5 ft 5 in Weight 183 lb BMI 30.4 BP 124/78 Blood Pressure Location Lt brachial Position Sitting Respiration 18 Pulse 86 Pulse Source Pulse Oximeter Temp 98.2 F Temp Source Oral Pulse Oximetry (%) 95 Oxygen Delivery Method Room Air Intake Visit Reasons: follow up Intake Note: Pt is here today for a follow up visit. Allergies dexamethasone (From Decadron) Allergy (Unknown, Unverified 03/12/25 11:14) LIGHTHEADED From Decadron Allergy (Unknown, Uncoded 03/12/25 11:14) LIGHTHEADED Medication List - Last Reconciled 03/12/25 by Mary Woodard MD acetaminophen ER (Tylenol 8 Hour) 1,000 mg PO Q12H PRN aspirin 81 mg PO DAILY blood sugar diagnostic (FreeStyle Lite Strips) Test blood sugar once a day blood-glucose meter (FreeStyle Lite Meter kit) As directed blood-glucose sensor (DexAlliance Card G7 Sensor device) As directed carvedilol 6.25 mg PO BID lancets (FreeStyle Lancets) Test blood sugar once a day lisinopril 40 mg PO DAILY metformin ER 750 mg PO BID rosuvastatin 20 mg PO DAILY tirzepatide (Mounjaro) 10 mg (0.5 mL) subcut QWEEK Tobacco use date assessed: 03/12/25 Dental Screening Dental Screen Date: 01/22/25 HPI follow up HPI Details Patient presents for the follow-up on hypertension hyperlipidemia type 2 diabetes. 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 Housing: House Patient Tobacco Use Status: Former Tobacco user e-Cigarette/Vaping Use: Never Used service: No Current occupational status: employed Cognitive needs: No Hearing needs: No Vision needs: Yes Questionnaire Thrive Questionnaire Date Thrive assessed: 09/15/24 I am a: Patient What is your living situation today?: I have a steady place to live Within the past 12 months, did the food you bought not last and you didn't have the money to get more?: Never true Within the past 12 months, did you worry whether your food would run out before you got money to buy more?: Never true Do you have trouble paying for medicines?: No Do you have trouble getting transportation to medical appointments?: No Do you have trouble paying your heating and electricity bill?: No Do you have trouble taking care of your child, family member or friend?: No Do you have trouble with day-to-day activities such as bathing, preparing meals, shopping, managing finances, etc.?: No Are you currently unemployed and looking for a job?: No Are you interested in more education?: No Please select the resources that you would like help with: None Currently or been in a relationship where the following occur: No concerns reported THRIVE Score: 0 ROBERTA-7 AMB Questionnaire ROBERTA-7 Date ROBERTA - 7 assessed: 01/22/25 Source: Developed by Drs. Osvaldo Russo, Meghan Hurt, Scooby Lopez and colleagues, with an educational ivelisse from [employer]. Review of Systems Const All systems reviewed & are unremarkable except as noted in HPI and below Eyes Reports no additional complaints ENT Reports no additional complaints Card Reports no additional complaints Resp Reports no additional complaints GI Reports no additional complaints Reports no additional complaints Physical exam (Primary Care) Vital Signs: Last Vital Signs Temp 98.2 F 03/12/25 11:12 Pulse 86 03/12/25 11:12 Resp 18 03/12/25 11:12 BP 124/78 03/12/25 11:12 Pulse Ox 95 03/12/25 11:12 Oxygen Delivery Method Room Air 03/12/25 11:12 BMI result Body Mass Index 30.4 Tobacco/Smoking Status: Tobacco use Status Tobacco use date assessed 03/12/25 03/12/25 11:18 Patient Tobacco Use Status Former Tobacco user 03/12/25 11:18 e-Cigarette/Vaping Use Never Used 03/12/25 11:18 Thrive Assessment: Date of Thrive Assessment Date Thrive assessed 09/15/24 03/12/25 11:18 Currently or been in a relationship where the following occur: No concerns reported Const General: no acute distress HENMT Face and sinus: Yes normal facial exam Resp Effort & Inspection: normal respiratory effort Auscultation: clear to auscultation bilaterally Cardio Rhythm: regular rhythm Heart sounds: S1 normal heart sound present and S2 normal heart sound present GI Inspection: Yes normal to inspection Palpation (GI): Soft to palpation Percussion: Yes normal to percussion Auscultation: normal bowel sounds Coding Level of Care Code Est Pt Level 4 (49239) Complex EM visit Add On G2211 Diagnoses HTN (hypertension) I10 Hyperlipidemia E78.5 DM type 2 (diabetes mellitus, type 2) E11.9 Assessment & Plan Assessment & Plan (1) HTN (hypertension): Code(s): I10 - Essential (primary) hypertension Category: Medical Plan: Continue current medications (2) Hyperlipidemia: Code(s): E78.5 - Hyperlipidemia, unspecified Category: Medical Plan: Continue statin (3) DM type 2 (diabetes mellitus, type 2): Code(s): E11.9 - Type 2 diabetes mellitus without complications Category: Medical Plan: A1c is 6.6, ADA diet increase exercise weight loss discussed with the patient. Increase Mounjaro to 12.5 mg weekly and continue metformin. Follow-up in 3 months with a fasting labs before Orders: Orders Hemoglobin A1c 3 Months E11.9 - Type 2 diabetes mellitus without complications, E78.5 - Hyperlipidemia, unspecified, I10 - Essential (primary) hypertension Complete Blood Count Auto Diff 3 Months E11.9 - Type 2 diabetes mellitus without complications, E78.5 - Hyperlipidemia, unspecified, I10 - Essential (primary) hypertension Comprehensive [place]. Panel Fast 3 Months E11.9 - Type 2 diabetes mellitus without complications, E78.5 - Hyperlipidemia, unspecified, I10 - Essential (primary) hypertension Microalbumin, Random (w Creat) 3 Months E11.9 - Type 2 diabetes mellitus without complications, E78.5 - Hyperlipidemia, unspecified, I10 - Essential (primary) hypertension Lipid Panel 3 Months E11.9 - Type 2 diabetes mellitus without complications, E78.5 - Hyperlipidemia, unspecified, I10 - Essential (primary) hypertension Medications: New tirzepatide (Mounjaro) 12.5 mg (0.5 mL) subcut QWEEK 2 mL 3RF Refilled blood-glucose meter (FreeStyle Lite Meter kit) As directed 1 ea 0RF E11.9 - Type 2 diabetes mellitus without complications blood sugar diagnostic (FreeStyle Lite Strips) Test blood sugar once a day 100 ea 1RF E11.9 - Type 2 diabetes mellitus without complications Discontinued tirzepatide (Mounjaro) Discontinued Reason: Doctor's Order 10 mg (0.5 mL) subcut QWEEK 2 mL 1RF
[2025-03-12 11:12] VITALS: BP 124/78; PULSE 86; RESP 18; TEMP 36.8; O2SAT 95; BMI 30.4
--- OUTSIDE RECORDS SUMMARY | 2025-03-12 11:24 | XMS_ITS | Clinical Summary ---
Author Organization [facility] Address [address] [place] [address] Care Team Providers Care E Commerce Marketing Analyst Name Role Phone Pcp, No Primary Care Provider Unavailabl e Allergies No known active allergies Encounters Date Type Department Care Team Description 12/23/2024 9:10 AM EDT Ancillary Procedure Orthopedic [address] [address] Osvaldo Ventura MD 12/23/2024 9:00 AM EDT Office Visit Orthopedic [address] [address] Osvaldo Ventura MD Closed nondisplaced transverse fracture of right patella, initial encounter (Primary Dx) from Last 3 Months Social History Tobacco Use Types Packs/Day Years Used Date Smoking Tobacco: Never Assessed Comments Unknown Sex and Gender Information Value Date Recorded Sex Assigned at Female 11/28/2024 9:59 AM EDT Legal Sex Female 9:42 AM EDT Gender Identity Female 11/28/2024 9:59 AM EDT Sexual Orientation Choose not to disclose 2024 9:59 AM EDT Plan of Treatment Health Maintenance Due Date Last Done Comments Hepatitis C Virus Screening 1965 HIV Screening 10/21/1976 DTaP/Tdap/Td Vaccines (1 - Tdap) 10/21/1982 Pap Smear (Ages 21-65) 10/21/1984 Mammogram 2003 Colonoscopy 10/21/2008 Pneumococcal Vaccines 50+ (1 of 1 - PCV) 10/21/2013 Zoster (Shingles) Vaccine (1 of 2) 10/21/2013 COVID-19 Vaccine (2 - 2023-2 5 season) 2024 07/21/2021 Influenza Vaccine 03/07/2025 RSV Vaccine 60 years and old er and Patients (1 - 1-dose 75+ series) 10/21/2038 Hepatitis B Vaccines Aged Out No long er eligible based on patient's age to complete this topic Procedures Procedure Name Priority Date/Time Associated Diagnosis Comments XR KNEE 4+ VIEWS-RIGHT Routine 12/23/2024 9:13 AM EDT Closed nondisplaced transverse fracture of right patella, initial encounter from Last 3 Months Results * XR Knee 4+ views-Right (12/23/2024 9:13 AM EDT) Narrative OAH - 12/23/2024 9:13 AM EDT This exam was performed in office at [facility] and images reviewed by orthopedic provider. Any findings are documented within ambulatory encounter note on date of service. us Osvaldo Ventura MD IMG DIAGNOSTIC IMAGING ORD ERABLES Final Result [facility] from Last 3 Months Insurance [facility] Care Teams E Commerce Marketing Analyst Relationship Specialty Start Date End Date Pcp, No PCP - General General Medicine 12/09/24
--- OUTSIDE RECORDS SUMMARY | 2025-03-12 11:26 | XMS_ITS | Clinical Summary ---
Author Organization [facility] Address [address] [place] [address] Care Team Providers Care Waiter/Waitress Take Out Name Role Phone Lv Jason Jefferson Primary [...] 10/21/1984 Cervical Cancer Screening 10/21/1993 HPV/Cotest 10/21/1993 Pneumococcal Vaccine, 50+ Ye ars (1 of 1 - PCV) 10/21/2013 Zoster Vaccines (1 of 2) 10/21/2013 COVID-19 Vaccine (1 - 2023-2 5 season) 2024 Influenza Vaccine (#1) 2025 HPV Vaccines Aged Out No longer eligi [...] to complete this topic Insurance Care Teams Waiter/Waitress Take Out Relationship Specialty Start Date End Date Jason Awan [address] [place] [address] PCP - General 04/19/19
--- OUTSIDE RECORDS SUMMARY | 2025-03-12 11:26 | XMS_ITS | Patient Health Record ---
Author Organization [facility] Address [address] [place] [address] Care Team Providers Care Personal Banking Assistant Name Role Phone Jason Awan MD Primary Care Provider Yusuf Elam Unavailable [phone] Allergies Allergen (clinical drug ingredient) Drug/Non Drug [...] Insured Coverage Start Date Coverage End Date [facility] [address] [place] [address] [phone] [id number] Alisa Chávez Self - patient is the insured Medical (General) History Medical History History ICD Code NONE Surgical History Surgery Date(Month/Year) knee surgery, right 2008 & 2010 uterine sugery 1993 & 2003 bunionectomy 08/25/2011
--- OUTSIDE RECORDS SUMMARY | 2025-03-12 11:26 | XMS_ITS ---
Author Name [facility] Organization Unknown Problems Problem Status Onset Date Problem Type Date of Resoluti on Source Closed nondisplaced transverse fracture of right patella, initial encounter active EncounterDiagnosisAct H HCCT Encounters Encounter Type Encounter Reason Primary Diagnosis Location Date Ambulatory [facility] 12/23/2024 Ambulatory Nondisplaced transverse fracture of right patella, initial encounter for closed fracture Nondisplaced transverse fracture of right patella, initial encounter for closed fracture [facility] 12/23/2024 Ambulatory [facility] 12/09/2024 Ambulatory [facility] 11/28/2024 Care Team Organization Name Specialty Phone Email Start Date End Da te [facility], [facility] Primary Care 01/20/2025 mob[facility] 12/09/2024 01/22/2025 mobli NO PCP Primary Care 12/09/2024 [facility] 11/28/2024 [facility] 2024 [facility] 08/08/2024
--- OUTSIDE RECORDS SUMMARY | 2025-03-12 11:26 | XMS_ITS | Clinical Summary ---
Author Organization [facility] Address [address] [place] [address] Care Team Providers Care Block Layer Name Role Phone Jason Awan MD Primary Care Provider [phone] Allergies Active Allergy Reactions Criticality Noted Date [...] (1 of 2) 10/21/2013 Influenza Vaccine (#1) 2025 RSV Adult > 60+ Yrs or Pregn [...] Subscriber ID Effective Dates Phone Address Type [facility] [id number] 2019-Pres ent [address] [place] [address] [facility] [id number] 10/05-Pres ent [address] [place] [address] O Care Teams Block Layer Relationship Specialty Start Date End Date Jason Awan MD [address] [facility] [place] [address] PCP - General Internal Medicine 02/12/19
--- OUTSIDE RECORDS SUMMARY | 2025-03-12 11:26 | XMS_ITS | Encounter Summary ---
Author Organization [facility] Address [address] [place] [address] Care Team Providers Care Healthcare Interpreter Name Role Phone Jason Awan MD Primary Care Provider [phone] Encounter Details Date Type Department Care Team (Latest Contact Info) Description 01/23/2024 Lab Requisition [facility] [address] [place] [id number] Mekhi Bl[place] [address] Encounter for preprocedural laboratory examination Social History [...] examination documented in this encounter Care Teams Healthcare Interpreter Relationship Specialty Start Date End Date Jason Awan MD [address] [place] [address] PCP - General Internal Medicine 02/12/19 documented as of this encounter
== END 2025-03-12 12:02 | disposition home or self-care (01) ==
LOC: HO.HMCC 10:42
PROVIDERS: PCP Internal Medicine; Visit Provider Internal Medicine
DX: I10 Essential (primary) hypertension (principal); E78.5 Hyperlipidemia, unspecified; E11.9 Type 2 diabetes mellitus without complications

== ENCOUNTER 2025-06-06 11:08 | Outpatient (REF) | payer OTHER, SELFPAY ==
--- NOTE | ~2025-06-06 | US_ITS ---
CLINICAL HISTORY: K80.20 - Calculus of gallbladder without cholecystitis without obstruction US abdomen limited Comparison: None provided Findings: The visualized pancreas is normal. The aorta and inferior vena cava are normal caliber. The appearance of the liver suggests fatty infiltration with a possible focal normal spared area. There is no intrahepatic bile duct dilatation. The common duct is 8.0 mm in diameter. There are gallstones. There are possible subcentimeter polyps. There is no sonographic Juan sign. The main portal vein is antegrade. The right kidney is 11.4 cm in length. No ascites. IMPRESSION: 1. Cholelithiasis. 2. Hepatic steatosis with possible focal normal spared liver. Consider dedicated hepatic imaging with MR or CT to further evaluate if patient can safely receive intravenous contrast. This document has been electronically signed by: Carlos Hernandez MD on 06/07/2025 08:40:50
[2025-06-06 11:24] LABS: MANUAL DIFF FLAG NO
[2025-06-06 11:51] LABS: Hematocrit 38.4 % (37.0-47.0); Hemoglobin 12.3 g/dl (12.0-16.0); Imm Gran Abs Auto 0.03 X10*3/uL (0.00-0.03); Imm Gran Pct Auto 0.3 % (0.0-0.4); Lymphocytes Absolute Auto 2.6 X10*3/uL (1.2-4.9); Mean Corpuscular HGB Conc 32.0 g/dl (31.0-35.0); Mean Corpuscular Hemoglobin 27.7 pg (27.0-33.0); Mean Corpuscular Volume 86.5 fL (80.0-98.0); NRBC Abs Auto 0.000 X10*3/uL (0.0-0.012); NRBC Pct Auto 0.0 /100WBC (0.0-0.2); Platelet Count 315 X10*3/uL (160-400); Red Blood Count 4.44 X10*6/uL (4.20-5.50); White Blood Count 8.9 X10*3/uL (4.8-10.8)
[2025-06-06 12:29] LABS: Alanine Aminotransferase 18 U/L (0-31); Albumin Level 4.9 g/dL (3.5-5.0); Alkaline Phosphatase 55 U/L (39-117); Anion Gap 14 (12-20); Aspartate Amino Transferase 21 U/L (5-31); Blood Urea Nitrogen 22 mg/dL (9-16); Calcium 10.2 mg/dL (8.4-10.2); Carbon Dioxide 26 mmol/L (22-29); Chloride 106 mmol/L (96-108); Cholesterol 137 mg/dL (<200); Estimated Glomerular Filt Rate > 60; HDL Cholesterol 45 mg/dL (>40); Iron 81 mcg/dL (30-160); Percent Iron Saturation 27 % (15-50); Potassium 4.6 mmol/L (3.3-5.1); Sodium 141 mmol/L (135-145); Total Iron Binding Capacity 296 mcg/dL (228-428); Total Protein 7.2 g/dL (6.5-8.0); Triglycerides 128 mg/dL (<150); Unsaturated Iron Binding 215 ug/dL
--- OUTSIDE RECORDS SUMMARY | 2025-06-06 12:42 | XMS_ITS | Clinical Summary ---
Author Organization [facility] Address [address] [place] [address] Care Team Providers Care Radial Drill Press Set Up Operator Name Role Phone Pcp, No Primary Care Provider Unavailabl e Allergies No known active allergies Social History Tobacco Use Types Packs/Day Years [...] Zoster (Shingles) Vaccine (1 of 2) 10/21/2013 Influenza Vaccine 03/07/2025 COVID-19 Vaccine (2 - 2024-2 6 season) 2025 07/21/2021 RSV Vaccine 50 years and old er and Patients (1 - 1-dose 75+ series) 10/21/2038 Hepatitis B Vaccines Aged Out No long er eligible based on patient's age to complete this topic Insurance [facility] Care Teams Radial Drill Press Set Up Operator Relationship Specialty Start Date End Date Pcp, No PCP - General General Medicine 12/09/24
--- OUTSIDE RECORDS SUMMARY | 2025-06-06 12:42 | XMS_ITS | Clinical Summary ---
Author Organization [facility] Address [address] [place] [address] Care Team Providers Care Logging Tractor Operator Name Role Phone Jason Awan MD Primary Care Provider [phone] Allergies Active Allergy Reactions Criticality Noted Date [...] Subscriber ID Effective Dates Phone Address Type [facility] [id number] 2019-Pres ent [address] [place] [address] [facility] [id number] 10/05-Pres ent [address] [place] [address] O Care Teams Logging Tractor Operator Relationship Specialty Start Date End Date Jason Awan MD [address] [facility] [place] [address] PCP - General Internal Medicine 02/12/19
--- OUTSIDE RECORDS SUMMARY | 2025-06-06 12:42 | XMS_ITS | Encounter Summary ---
Author Organization [facility] Address [address] [place] [address] Care Team Providers Care Aerophysics Engineer Name Role Phone Jason Awan MD Primary Care Provider Encounter Details Date Type Department Care Team (Latest Contact Info) Description 01/23/2024 Lab Requisition [facility] [address] [place] [phone] Mekhi Blanco MD [address] [place] [address] Encounter for preprocedural laboratory examination Social History [...] examination documented in this encounter Care Teams Aerophysics Engineer Relationship Specialty Start Date End Date Jason Awan MD [address] [place] [address] PCP - General Internal Medicine 02/12/19 documented as of this encounter
--- OUTSIDE RECORDS SUMMARY | 2025-06-06 12:42 | XMS_ITS | Clinical Summary ---
Author Organization [facility] Address [address] [place] [address] Care Team Providers Care Driver/Merchandiser Name Role Phone Lv Jason Jefferson Primary Care Provider [phone] Allergies Active Allergy Reactions Criticality Noted Date [...] COVID-19 Vaccine (1 - 2023-2 5 season) 2025 Influenza Vaccine (#1) 2025 HPV Vaccines Aged [...] patient's age to complete this topic [place] [facility] Address: [address] [address] Care Teams Driver/Merchandiser Relationship Specialty Start Date End Date Jason Awan [address] [place] [address] PCP - General 04/19/19
--- OUTSIDE RECORDS SUMMARY | 2025-06-06 12:42 | XMS_ITS | Patient Health Record ---
Author Organization [facility] Address [address] [place] [address] Care Team Providers Care Funds Development Director Name Role Phone Jason Awan MD Primary Care Provider Yusuf De Souza Unavailable [phone] Allergies Allergen (clinical drug ingredient) Drug/Non Drug [...] W/U Status Risk Notes Problem Pain in limb ([id number]) Pain in Limb (729.5) Active confirmed Plan [...] Insured Coverage Start Date Coverage End Date [facility] [address] [place] [address] [phone] [id number] Alisa Chávez Self - patient is the insured Medical (General) History Medical History History ICD Code NONE Surgical History Surgery Date(Month/Year) knee surgery, right 2008 & 2010 uterine sugery 1992 & 2003 bunionectomy 08/25/2011
--- OUTSIDE RECORDS SUMMARY | 2025-06-06 12:42 | XMS_ITS | Clinical Summary ---
Author Organization [facility] Address [address] [place] [address] Phone Care Team Providers Care Monkey Keeper Name Role Phone Jason Awan MD Primary Care Provider [phone] Surgical History Surgery Date Site/Laterality Comments KNEE [...] 10/21/2013 Zoster Vaccines (1 of 2) 10/21/2013 Depression Screening 08/07/2024 COVID-19 Vaccine ( - 2023-2 5 season) 2025 Influenza Vaccine (#1) 2025 RSV Immunization Adult Patie nts (1 - 1-dose 75+ series) 10/21/2038 HIB [...] age to complete this topic Meningococcal B Vaccine Aged Out No l onger eligible based on patient's age to complete this topic RSV Immunization Patients Un sahara 20 months Aged Out No longer eligible b ased on patient's age to complete this topic Varicella Vaccines Aged Out No longer eligible based on patient's age to complete this topic Care Teams Monkey Keeper Relationship Specialty Start Date End Date Jason Awan MD [address] [place] [address] PCP - General Internal Medicine 02/12/19
[2025-06-06 13:02] LABS: Folate 11.6 ng/mL (> or = 4.0); Vitamin B12 367 pg/mL (200-900)
[2025-06-06 13:09] LABS: Microalbum/Creatinine Ratio Ur 28.5 ug/mg cr (<30)
== END 2025-06-06 11:09 | disposition home or self-care (01) ==
LOC: HO.US 11:08
PROVIDERS: PCP Internal Medicine; Visit Provider Internal Medicine
DX: E11.9 Type 2 diabetes mellitus without complications (principal); E78.5 Hyperlipidemia, unspecified; I10 Essential (primary) hypertension; K80.20 Calculus of gallbladder without cholecystitis without obstruction
CPT/HCPCS: 36415; 76705; 80053; 80061; 82043; 82570; 82607; 82746; 83036; 83540; 85025

== ENCOUNTER → 2025-06-06 11:28 | Outpatient (BNV) | payer OTHER, SELFPAY | PROVIDERS: PCP Internal Medicine; Visit Provider Specialist | DX: K80.20 Calculus of gallbladder without cholecystitis without obstruction (principal) | CPT/HCPCS: 76705 ==

== ENCOUNTER 2025-06-12 09:00 | Outpatient (AMB) | payer OTHER, SELFPAY ==
[2025-06-12 09:02] VITALS: BP 116/74; PULSE 82; RESP 16; TEMP 36.5; O2SAT 95; BMI 28.5
--- NOTE | 2025-06-12 09:02 | MHC.PC.OV ---
Vital Signs 06/12/25 09:02 Height 5 ft 5 in Weight 171 lb BMI 28.5 BP 116/74 Blood Pressure Location Lt brachial Position Sitting Respiration 16 Pulse 82 Pulse Source Pulse Oximeter Temp 97.7 F Temp Source Oral Pulse Oximetry (%) 95 Oxygen Delivery Method Room Air Intake Visit Reasons: 3m follow up Intake Note: Pt is here today for 3 months follow up visit on labs. Allergies dexamethasone (From Decadron) Allergy (Unknown, Unverified 06/12/25 09:04) LIGHTHEADED From Decadron Allergy (Unknown, Uncoded 06/12/25 09:04) LIGHTHEADED Medication List - Last Reconciled 06/12/25 by Mary Woodard MD acetaminophen ER (Tylenol 8 Hour) 1,000 mg PO Q12H PRN aspirin 81 mg PO DAILY blood sugar diagnostic (FreeStyle Lite Strips) Test blood sugar once a day blood-glucose meter ([employer] Lite Meter kit) As directed blood-glucose sensor ([employer] G7 Sensor device) As directed carvedilol 6.25 mg PO BID lancets (FreeStyle Lancets) Test blood sugar once a day lisinopril 40 mg PO DAILY metformin ER 750 mg PO BID rosuvastatin 20 mg PO DAILY tirzepatide (Mounjaro) 12.5 mg (0.5 mL) subcut QWEEK Tobacco use date assessed: 03/12/25 Dental Screening Dental Screen Date: 01/22/25 HPI 3m follow up HPI Details Patient presents for the follow-up of type 2 diabetes hypertension hyperlipidemia stable on current medications. Patient had 2 episodes of right upper quadrant abdominal pain after eating fatty foods a few weeks ago. Patient had abdominal ultrasound which showed gallstones but no cholecystitis. Patient has been eating low-fat diet and has not had episodes since then. 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 Housing: House Patient Tobacco Use Status: Former Tobacco user e-Cigarette/Vaping Use: Never Used service: No Current occupational status: employed Cognitive needs: No Hearing needs: No Vision needs: Yes Questionnaire PHQ-9 Over the last 2 weeks, how often have you been bothered by any of the following problems? 1. Little interest or pleasure in doing things: not at all 2. Feeling down, depressed, or hopeless: not at all 3. Trouble falling or staying asleep, or sleeping too much: not at all 4. Feeling tired or having little energy: not at all 5. Poor appetite or overeating: not at all 6. Feeling bad about yourself - or that you are a failure or have let yourself or your family down: not at all 7. Trouble concentrating on things, such as reading the newspaper or watching television: not at all 8. Moving or speaking so slowly that other people could have noticed. Or the opposite - being so fidgety or restless that you have been moving around a lot more than usual: not at all 9. Thoughts that you would be better off or of hurting yourself in some way: not at all Total score: 0 Depression Screening Interpretation: Negative Depression Screening Done: Yes Source: Developed by Drs. Osvaldo Russo, Meghan Hurt, Scooby Lopez and colleagues, with an educational ivelisse from [employer]. Thrive Questionnaire Date Thrive assessed: 09/15/24 I am a: Patient What is your living situation today?: I have a steady place to live Within the past 12 months, did the food you bought not last and you didn't have the money to get more?: Never true Within the past 12 months, did you worry whether your food would run out before you got money to buy more?: Never true Do you have trouble paying for medicines?: No Do you have trouble getting transportation to medical appointments?: No Do you have trouble paying your heating and electricity bill?: No Do you have trouble taking care of your child, family member or friend?: No Do you have trouble with day-to-day activities such as bathing, preparing meals, shopping, managing finances, etc.?: No Are you currently unemployed and looking for a job?: No Are you interested in more education?: No Please select the resources that you would like help with: None Currently or been in a relationship where the following occur: No concerns reported THRIVE Score: 0 ROBERTA-7 AMB Questionnaire ROBERTA-7 Date ROBERTA - 7 assessed: 01/22/25 Feeling nervous, anxious, or on edge: 0 = Not at all Not being able to stop or control worryin = Not at all Worrying too much about different things: 0 = Not at all Trouble relaxin = Not at all Being so restless that it is hard to sit still: 0 = Not at all Becoming easily annoyed or irritable: 0 = Not at all Feeling afraid as if something awful might happen: 0 = Not at all Total ROBERTA-7 score (0-4 normal; 5-9 mild; 10-14 moderate; 15-21 severe): 0 Source: Developed by Drs. Osvaldo Russo, Meghan Hurt, Scooby Lopez and colleagues, with an educational ivelisse from [employer]. Review of Systems Const All systems reviewed & are unremarkable except as noted in HPI and below Eyes Reports no additional complaints ENT Reports no additional complaints Card Reports no additional complaints Resp Reports no additional complaints GI Reports no additional complaints Reports no additional complaints Physical exam (Primary Care) Vital Signs: Last Vital Signs Temp 97.7 F 06/12/25 09:02 Pulse 82 06/12/25 09:02 Resp 16 06/12/25 09:02 BP 116/74 06/12/25 09:02 Pulse Ox 95 06/12/25 09:02 Oxygen Delivery Method Room Air 06/12/25 09:02 BMI result Body Mass Index 28.5 Tobacco/Smoking Status: Tobacco use Status Tobacco use date assessed 03/12/25 06/12/25 09:08 Patient Tobacco Use Status Former Tobacco user 06/12/25 09:08 e-Cigarette/Vaping Use Never Used 06/12/25 09:08 PHQ-9: PHQ-9 Score PHQ-9: Total score 0 06/12/25 09:08 Depression Screening Interpretation: Negative Thrive Assessment: Date of Thrive Assessment Date Thrive assessed 09/15/24 06/12/25 09:08 Currently or been in a relationship where the following occur: No concerns reported Const General: no acute distress HENMT Head: Yes normal to inspection Throat: Yes posterior oropharynx normal Eyes General: appearance normal, both eyes and all related structures Resp Effort & Inspection: normal respiratory effort Auscultation: clear to auscultation bilaterally Cardio Rhythm: regular rhythm Heart sounds: S1 normal heart sound present and S2 normal heart sound present GI Inspection: Yes normal to inspection Palpation (GI): Soft to palpation Percussion: Yes normal to percussion Auscultation: normal bowel sounds Coding Level of Care Code Est Pt Level 4 (69649) Diagnoses HTN (hypertension) I10 Hyperlipidemia E78.5 DM type 2 (diabetes mellitus, type 2) E11.9 Cholelithiasis K80.20 Assessment & Plan Assessment & Plan (1) HTN (hypertension): Code(s): I10 - Essential (primary) hypertension Category: Medical Plan: Continue current medications (2) Hyperlipidemia: Code(s): E78.5 - Hyperlipidemia, unspecified Category: Medical Plan: Continue statin (3) DM type 2 (diabetes mellitus, type 2): Code(s): E11.9 - Type 2 diabetes mellitus without complications Category: Medical Plan: A1c is down to 5.8. Continue current medications, ADA diet, increase physical activity and weight loss discussed with the patient. She will follow-up in 3 months with a fasting labs before (4) Cholelithiasis: Comment: US 05/2025, gallstone negative for cholecystitis Code(s): K80.20 - Calculus of gallbladder without cholecystitis without obstruction Category: Medical Plan: Treatment options discussed with the patient. She was recommended to see a general surgeon to discuss cholecystectomy. Patient will ask her sister and friends about recommendations Orders: Orders Comprehensive [place]. Panel Fast 3 Months E11.9 - Type 2 diabetes mellitus without complications, E78.5 - Hyperlipidemia, unspecified, I10 - Essential (primary) hypertension Complete Blood Count Auto Diff 3 Months E11.9 - Type 2 diabetes mellitus without complications, E78.5 - Hyperlipidemia, unspecified, I10 - Essential (primary) hypertension Hemoglobin A1c 3 Months E11.9 - Type 2 diabetes mellitus without complications, E78.5 - Hyperlipidemia, unspecified, I10 - Essential (primary) hypertension Microalbumin, Random (w Creat) 3 Months E11.9 - Type 2 diabetes mellitus without complications, E78.5 - Hyperlipidemia, unspecified, I10 - Essential (primary) hypertension Lipid Panel 3 Months E11.9 - Type 2 diabetes mellitus without complications, E78.5 - Hyperlipidemia, unspecified, I10 - Essential (primary) hypertension Medications: Refilled tirzepatide (Mounjaro) 12.5 mg (0.5 mL) subcut QWEEK 2 mL 3RF
--- OUTSIDE RECORDS SUMMARY | 2025-06-12 09:43 | XMS_ITS | Clinical Summary ---
Author Organization [facility] Address [address] [place] [address] Phone Care Team Providers Care Legal Support Analyst Name Role Phone Annie Sánchez MD Unavailable [phone] Osvaldo Ventura MD Unavailable Unknown, Unknown Primary Care Provider [place] payton Allergies Active Allergy Reactions Criticality Noted Date Comments Dexamethasone Other (See Comments) 03/18/2019 Flushed, weakness Medications albuterol (VENTOLIN HFA) 90 mcg/actuation inhaler TAKE 2 PUFFS NEEDED EVERY 4 HRS NEEDED Active fluticasone (FLOVENT HFA) 110 mcg/actuation inhaler 1 puff Inhalation Twice a day 2 Active ibuprofen (ADVIL,MOTRIN) 200 MG tablet Take 800 mg by mouth 3 (three) times a day as needed for pain (specific location in comments). Active Active Problems Problem Noted Date Diagnosed Date Thyromegaly 06/11/2020 Assessment & Plan (06/11/2020 7:52 AM EST): Check TSH Chronic knee instability, left 06/11/2020 Assessment & Plan (06/11/2020 7:52 AM EST): Await MRI. Already has ortho consult scheduled. Asthma Overview (06/11/2020): mild Assessment & Plan (06/11/2020 7:51 AM EST): Well-managed Immunizations Immunization Administration Dates Next Due COVID-19 (Pre-05/29) Pfizer Vaccine, mRNA, PF Td (adult),2 Lf Tetanus Toxoid, PF, Adsorbed 11/2019 Family History Medical History Relation Comments Diabetes mellitus Father Hyperlipidemia Father Hypertension Father Breast cancer Mother Hyperlipidemia Mother Hypertension Mother Diabetes mellitus Sister 1 Hypertension Sister 1 Stroke Sister 1 Diabetes mellitus Sister 2 Hyperlipidemia Sister 2 Hypertension Sister 2 Relation Status Comments Father Mother Sister 1 Alive Sister 2 Alive Social History Tobacco Use Types Packs/Day Years Used Date Smoking Tobacco: Former Cigarettes 0 10 1 - 1989 Smokeless Tobacco: Never Comments:quit over 30 yrs, s ocially on weekends Alcohol Use Standard Drinks/Week Comments Yes 0 (1 standard drink = 0.6 oz pur e alcohol) once a month Education Answer Date Recorded Are you interested in more education? Not on juan david e 12/02/2022 Are you concerned about learning? Not on file 12/02/2022 No 12/02/2022 No 12/02/2022 Digital Access Answer Date Recorded No 12/31/2022 No 12/31/2022 Reliable internet access at home? Not on file 12/31/2022 Device with a working camera? Not on file Comments Unknown Sex and Gender Information Value Date Recorded Sex Assigned at Not on file Legal Sex Female 9:43 PM EDT Gender Identity Not on file Sexual Orientation Not on file Last Filed Vital Signs Vital Sign Reading Time Taken Comments Blood Pressure 132/80 06/10/2020 2:42 PM EST Pulse 92 06/10/2020 2:42 PM EST Temperature 37.1 C (98.7 F) 06/10/2020 2:42 PM EST Respiratory Rate 16 06/10/2020 2:42 PM EST Oxygen Saturation 98% 06/10/2020 2:42 PM EST Inhaled Oxygen Concentration - - Weight 102.1 kg (225 lb) 06/10/2020 2:42 PM EST Height 162.6 cm (5' 4 ) 06/10/2020 2:42 PM EST Body Mass Index 38.62 06/10/2020 2:42 PM EST Plan of Treatment Health Maintenance Due Date Last Done Comments LIPID PANEL 1963 SMOKING Hx and SMOKELESS TOBACCO SCREENING 10/21/1976 HEPATITIS C SCREENING 10/21/1981 HIV ONE-TIME SCREENING (18-6 5 YEARS) 10/21/1981 PNEUMOCOCCAL VACCINES (50+ years) (1 of 2 - PCV) 10/21/1982 COLOGUARD 10/21/2008 COLONOSCOPY 10/21/2008 COLORECTAL CANCER SCREENING 10/21/2008 FIT TEST 10/21/2008 FOBT 10/21/2008 SIGMOIDOSCOPY 10/21/2008 VIRTUAL COLONOSCOPY 10/21/2008 RSV VACCINE (1 - Risk 50-74 years 1-dose series) 10/21/2013 ZOSTER VACCINES (1 of 2) 10/21/2013 PAP SMEAR 04/03/2018 04/03/2015, 04/03/2015 DEPRESSION SCREENING 06/10/2021 06/10/2020 MAMMOGRAM 04/05/2024 04/05/2022, 10/05/2016 INFLUENZA VACCINE (#1) 2025 COVID-19 VACCINE (2 - 2024-2 6 season) 2025 07/21/2021 Adult Td,Tdap Booster 06/10/2030 06/10/2020 HEPATITIS A VACCINES Aged Out No long er eligible based on patient's age to complete this topic HIB VACCINES Aged Out No longer eligi ble based on patient's age to complete this topic MENINGOCOCCAL VACCINES (ACWY) Aged Out No longer eligible based on patient's age to complete this topic MENINGOCOCCAL VACCINES (B) Aged Out N o longer eligible based on patient's age to complete this topic Medical Devices Not on file Procedures Procedure Name Priority Date/Time Associated Diagnosis Comments HM MAMMOGRAPHY Routine 04/05/2022 PAP SMEAR FOR RESULT ENTRY ONLY Routine 04/03/2015 from Last 3 Months or Most Recently Relevant to Health Maintenance Results * MAMMOGRAPHY FOR RESULT ENTRY ONLY (04/05/2022) us Historical Provider HEALTH MAINTENANCE Edited Result - Final * PAP SMEAR FOR RESULT ENTRY ONLY (04/03/2015) us Historical Provider HEALTH MAINTENANCE Edited Result - Final from Last 3 Months or Most Recently Relevant to Health Maintenance Insurance PPO PHCS S S S S S S S S Care Teams Legal Support Analyst Relationship Specialty Start Date End Date Unknown, Unknown, MD PCP - General 06/19/23 Annie Sánchez MD [address] [place] [id number] Obstetrics and Gynecology 06/10/20 Osvaldo Ventura MD [address] [place] [phone] [email or web address] Sports Medicine 06/29/20 Additional Source Comments The information contained in this document represents components of the legal health record. It is not the complete legal health record.[facility]
--- OUTSIDE RECORDS SUMMARY | 2025-06-12 09:43 | XMS_ITS | Patient Health Record ---
Author Organization [facility] Address [address] [place] [address] Care Team Providers Care Network Systems Administrator Name Role Phone Jason Awan MD Primary Care Provider Yusuf De Souza Unavailable [phone] Allergies Allergen (clinical drug ingredient) Drug/Non Drug [...] Status Risk Notes Problem Pain in limb ([id number]) Pain in Limb (729.5) Active confirmed Plan [...] Insured Coverage Start Date Coverage End Date [facility] [address] [place] [address] [phone] [id number] Alisa Chávez Self - patient is the insured Medical (General) History Medical History History ICD Code NONE Surgical History Surgery Date(Month/Year) knee surgery, right 2008 & 2010 uterine sugery 1992 & 2003 bunionectomy 08/25/2011
--- OUTSIDE RECORDS SUMMARY | 2025-06-12 09:43 | XMS_ITS | Encounter Summary ---
Author Organization [facility] Address [address] [place] [address] Care Team Providers Care Car Hop Name Role Phone Jason Awan MD Primary Care Provider [phone] Encounter Details Date Type Department Care Team (Latest Contact Info) Description 01/23/2024 Lab Requisition [facility] [address] [place] [id number] Mekhi Blanco MD [address] [place] [address] Encounter for preprocedural laboratory examination [...] examination documented in this encounter Care Teams Car Hop Relationship Specialty Start Date End Date Jason Awan MD [address] [place] [phone] PCP - General Internal Medicine 02/12/19 documented as of this encounter
--- OUTSIDE RECORDS SUMMARY | 2025-06-12 09:43 | XMS_ITS | Clinical Summary ---
Author Organization [facility] Address [address] [place] [address] Care Team Providers Care Advertising Writer Name Role Phone Pcp, No Primary Care [...] age to complete this topic Insurance [facility] Care Teams Advertising Writer Relationship Specialty Start Date End Date Pcp, No PCP - General General Medicine 12/09/24
--- OUTSIDE RECORDS SUMMARY | 2025-06-12 09:43 | XMS_ITS | Clinical Summary ---
Author Organization [facility] Address [address] [place] [address] Phone Care Team Providers Care Prize Fighter Name Role Phone Jason Awan MD Primary Care Provider [phone] Surgical History Surgery Date Site/Laterality Comments KNEE [...] age to complete this topic Care Teams Prize Fighter Relationship Specialty Start Date End Date Jason Awan MD [address] [place] [address] PCP - General Internal Medicine 02/12/19
--- OUTSIDE RECORDS SUMMARY | 2025-06-12 09:44 | XMS_ITS | Clinical Summary ---
Author Organization [facility] [place] [facility] Address [address] [place] [address] Care Team Providers Care Land Survey Technician Name Role Phone Jason Awan MD Primary Care Provider [phone] Allergies Active Allergy Reactions Criticality Noted Date [...] Subscriber ID Effective Dates Phone Address Type [facility] [id number] 2019-Pres ent [address] [place] [address] [facility] [id number] 10/05-Pres ent [address] [place] [address] O Care Teams Land Survey Technician Relationship Specialty Start Date End Date Jason Awan MD [address] [facility] [place] [address] PCP - General Internal Medicine 02/12/19
--- OUTSIDE RECORDS SUMMARY | 2025-06-12 09:44 | XMS_ITS | Clinical Summary ---
Author Organization [facility] Address [address] [place] [id number] Care Team Providers Care Toggle Press Operator Name Role Phone Lv Jason Jefferson Primary Care Provider [phone] Allergies Active Allergy Reactions Criticality Noted Date [...] age to complete this topic Insurance [facility] Address: [address] [address] Care Teams Toggle Press Operator Relationship Specialty Start Date End Date Jason Awan [address] [place] [address] PCP - General 04/19/19
== END 2025-06-12 09:33 | disposition home or self-care (01) ==
LOC: HO.HMCC 09:01
PROVIDERS: PCP Internal Medicine; Visit Provider Internal Medicine
DX: I10 Essential (primary) hypertension (principal); E78.5 Hyperlipidemia, unspecified; E11.9 Type 2 diabetes mellitus without complications; K80.20 Calculus of gallbladder without cholecystitis without obstruction